=== PATIENT | female | born 1940 | race African-American/Black ===

== ENCOUNTER 2018-04-23 10:42 | Inpatient (IN) | payer MEDICARE, MEDICAID ==
[~2018-04-23] VITALS: Ht 157.5 cm; Wt 54.0 kg
[~2018-04-23 10:42] MED LIST: ALBUTEROL SULF8.5 GM INH; CLINDAMYCIN HC150 MG ORAL; LEVAQUIN500 MG PO; LICE KILLING S118 ML TP; NKM; PREDNISONE20 MG PO; PREDNISONE50 MG ORAL; PREDNISONE50 MG PO
[2018-04-23] MEDS ORDERED: BACTRIM DS TAB1 EAC1 ORAL (10:51)
[2018-04-23] MEDS ORDERED: Zolpidem 5mg tab ORAL PRN (11:00)
[2018-04-23] MEDS ORDERED: LORazepam Inj 2mg/ml 1ml IV PRN (11:00)
[2018-04-23] MEDS ORDERED: Mylanta II UD 30ml ORAL PRN (11:00)
[2018-04-23] MEDS ORDERED: Morphine Sulfate 2mg/ml Inj(IV/IM USE ONLY) IVP PRN (11:00)
[2018-04-23] MEDS ORDERED: Miralax 17gm pkt ORAL PRN (11:00)
[2018-04-23 11:10] VITALS: BP 131/71
--- NOTE | 2018-04-23 11:10 | NUR ---
ED Nurse Note: patient was brought by wide area network systems administrator from [facility] assissting leaving, complaining of SOB since this morning. Patient's O2 sat 96% at room air. VSS at this time, AAO x 4, skin is dry, intact. no chest pain, pt. has nonlabored breathing. connected to the monitor, will continue to monitor.
--- NOTE | 2018-04-23 11:14 | Emergency Room Report ---
History of Present Illness General Chief Complaint: Dyspnea/Respdistress Source: Patient Present Illness HPI Patient is a 77-year-old female brought sent in by her physician for hyponatremia. Patient was noted to have prior history of COPDShortness of breath. Patient was noted to have increased generalized weakness. Patient had recent laboratory testing which showed marked hyponatremia. Allergies: Coded Allergies: LATEX (Verified Allergy, Unknown, 10/07/11) LEVOFLOXACIN (Verified Allergy, 04/12/12) Patient History Past Medical History: see triage record Reviewed Nursing Documentation: PMH: Agreed; PSxH: Agreed Nursing Documentation-PMH Past Medical History: No History, Except For Hx Cardiac Problems: No Hx Hypertension: No Hx Pacemaker: No Hx Asthma: Yes Hx COPD: Yes Hx Diabetes: No Hx Cancer: No Hx Gastrointestinal Problems: No Hx Dialysis: No Hx Neurological Problems: No Hx Cerebrovascular Accident: No Hx Seizures: No Review of Systems All Other Systems: negative except mentioned in HPI Physical Exam Vital Signs Date Time Temp Pulse Resp B/P (MAP) Pulse Ox O2 Delivery O2 Flow Rate FiO2 04/23/18 10:46 97.5 83 20 130/84 90 Room Air Sp02 EP Interpretation: reviewed, normal General Appearance: normal inspection, alert, GCS 15, Chronically Ill Head: atraumatic ENT: normal ENT inspection, hearing grossly normal, normal voice Neck: normal inspection, full range of motion, supple, no bony tend Respiratory: normal inspection, no respiratory distress, no retraction, decreased breath sounds - right side decreased breath sounds Cardiovascular #1: regular rate, rhythm, no edema Gastrointestinal: normal inspection, normal bowel sounds, non tender, soft, no guarding, no hernia Genitourinary: no CVA tenderness Musculoskeletal: normal inspection, back normal, normal range of motion Neurologic: normal inspection, alert, oriented x3, responsive, yarn cleaner III-XII nml as tested, speech normal Psychiatric: normal inspection, judgement/insight normal, mood/affect normal Skin: normal inspection, normal color, no rash Medical Decision Making Diagnostic Impression: Primary Impression: Pleural effusion, right Additional Impression: Hyponatremia ER Course Patient presented for shortness of breath. Differential diagnosis include was not limited to pneumonia, COPD exacerbation, pneumothorax among others. Because of complexity of patient's case laboratory testing and imaging studies were ordered.Patient was noted to have recent laboratory testing performed. This is not repeat in the emergency department. Chest x-ray 1 view read by radiology showed large right pleural effusion. Patient will be admitted to the hospital for further evaluation and workup of pleural effusion. Dr. Betancur was contacted for inpatient management due to primary care physician. Laboratory Tests Test 04/23/18 12:00 Prothrombin Time 11.1 SEC (9.30-11.50) Prothrombin Time INR 1.1 (0.9-1.1) PTT 30 SEC (23-33) Urine Color Pale yellow Urine Appearance Clear Urine pH 6 (4.5-8.0) Urine Specific [place] 1.015 (1.005-1.035) Urine Protein 2+ (NEGATIVE) H Urine Glucose (UA) Negative (NEGATIVE) Urine Ketones 3+ (NEGATIVE) H Urine Blood 3+ (NEGATIVE) H Urine Nitrite Negative (NEGATIVE) Urine Bilirubin Negative (NEGATIVE) Urine Urobilinogen Normal MG/DL (0.0-1.0) Urine Leukocyte Esterase 1+ (NEGATIVE) H Urine RBC 2-4 /HPF (0 - 2) H Urine WBC 0-2 /HPF (0 - 2) Urine Squamous Epithelial Cells Few /LPF (NONE/OCC) Urine Bacteria Few /HPF (NONE) Urine Osmolality 398 mOsm/kg (429-449) L Urine Random Sodium < 20 mmol/L (20-110) L Osmolality 246 mOsm/kg (297-317) L Uric Acid Pending Thyroid Stimulating Hormone (TSH) Pending Free Thyroxine Pending Free Triiodothyronine Pending Cortisol Pending Last Vital Signs Date Time Temp Pulse Resp B/P (MAP) Pulse Ox O2 Delivery O2 Flow Rate FiO2 04/23/18 10:46 97.5 83 20 130/84 90 Room Air Status: unchanged Disposition: ADMITTED INPATIENT Condition: Carlos Skinner MD Apr 23, 2018 11:14
[2018-04-23] MEDS ORDERED: Dextrose 50% 25ml Syringe IV PRN (11:15)
--- NOTE | 2018-04-23 11:48 | Diagnostic Imaging Report ---
Indication: Reason For Exam: SOB Technique: One view of the chest Comparison: 07/08/2014 Findings: Interim development of a massive right pleural effusion, occupying most of the right hemithorax. There is scalloping of left hemidiaphragm. Left lung and pleural space are clear. Impression: Massive right pleural effusion
--- NOTE | 2018-04-23 12:27 | History and Physical ---
History of Present Illness General Date patient seen: Apr 24, 2018 Reason for Hospitalization: Dyspnea/Respdistress Present Illness HPI 77-year-old female without any PMHx brought in by her physician for hyponatremia. Patient was noted to have prior history of COPD. Shortness of breath. Patient was noted to have increased generalized weakness. Patient had recent laboratory testing which showed marked hyponatremia. Her CXR showed RLL effusion. Allergies: Coded Allergies: LATEX (Verified Allergy, Unknown, 10/07/11) LEVOFLOXACIN (Verified Allergy, 04/12/12) Medication History Scheduled Clindamycin Hcl* (Clindamycin Hcl*), 300 MG ORAL TID, (Reported) No Known Medications* (NKM - No Known Medications*), 0 ., (Reported) Trimethoprim/Sulfamethoxazole 160/800* (Bactrim Ds Tablet*), 1 TAB ORAL DAILY, ( Reported) Miscellaneous Medications Piperonyl Butoxide/Pyrethrins (Lice Killing Shampoo), 118 ML TP, (Reported) Patient History Healthcare decision maker Resuscitation status Advanced Directive on File Past Medical/Surgical History Past Medical/Surgical History: (1) copd Review of Systems All Other Systems: negative except mentioned in HPI Physical Exam General Appearance: WD/WN, alert Lines, tubes and drains: peripheral HEENT: normocephalic, atraumatic Neck: non-tender, normal alignment Respiratory/Chest: chest wall non-tender, lungs clear Breasts: no masses Cardiovascular/Chest: normal peripheral pulses Last 24 Hour Vital Signs Date Time Temp Pulse Resp B/P (MAP) Pulse Ox O2 Delivery O2 Flow Rate FiO2 04/23/18 11:10 73 15 Room Air 04/23/18 11:10 98.0 73 17 131/71 97 Room Air 04/23/18 10:46 97.5 83 20 130/84 90 Room Air Laboratory Tests Test 04/23/18 12:00 Urine Color Pending Urine Appearance Pending Urine pH Pending Urine Specific [place] Pending Urine Protein Pending Urine Glucose (UA) Pending Urine Ketones Pending Urine Blood Pending Urine Nitrite Pending Urine Bilirubin Pending Urine Urobilinogen Pending Urine Leukocyte Esterase Pending Urine RBC Pending Urine WBC Pending Urine Squamous Epithelial Cells Pending Urine Bacteria Pending Urine Osmolality Pending Urine Random Sodium Pending Osmolality Pending Uric Acid Pending Thyroid Stimulating Hormone (TSH) Pending Free Thyroxine Pending Free Triiodothyronine Pending Cortisol Pending Height (Feet): 5 Height (Inches): 2.00 Weight (Pounds): 120 Medications Current Medications Medications (Trade) Dose Ordered Sig/Jadyn Route PRN Reason Start Time Stop Time Status Last Admin Dose Admin Acetaminophen (Tylenol) 650 mg Q4H PRN ORAL fever 04/23/18 11:00 05/23/18 10:59 Al Hydroxide/Mg Hydroxide (Mylanta II) 30 ml Q6H PRN ORAL dyspepsia 04/23/18 11:00 05/23/18 10:59 Dextrose (Dextrose 50%) 25 ml Q30M PRN IV Hypoglycemia 04/23/18 11:15 05/23/18 11:03 Dextrose (Dextrose 50%) 50 ml Q30M PRN IV hypoglycemia 04/23/18 11:15 05/23/18 11:14 Lorazepam (Ativan 2mg/ml 1ml) 0.5 mg Q4H PRN IV For Anxiety 04/23/18 11:00 04/30/18 10:59 Morphine Sulfate (Morphine Sulfate) 1 mg Q4H PRN IVP For Pain 04/23/18 11:00 04/30/18 10:59 Ondansetron HCl (Zofran) 4 mg Q6H PRN IVP Nausea & Vomiting 04/23/18 11:00 05/23/18 10:59 Polyethylene Glycol (Miralax) 17 gm HSPRN PRN ORAL Constipation 04/23/18 11:00 05/23/18 10:59 Sodium Chloride 500 ml @ 30 mls/hr ONCE ONCE IV 04/23/18 11:15 04/24/18 03:54 UNV Zolpidem Tartrate (Ambien) 5 mg HSPRN PRN ORAL Insomnia 04/23/18 11:00 04/30/18 10:59 Assessment/Plan Problem List: (1) Pleural effusion, right ICD Codes: J90 - Pleural effusion, not elsewhere classified SNOMED: 76766487 (2) Acute encephalopathy ICD Codes: G93.40 - Encephalopathy, unspecified SNOMED: 53351144, 546420899 (3) Hyponatremia ICD Codes: E87.1 - Hypo-osmolality and hyponatremia SNOMED: 97272347 (4) copd Assessment/Plan thoracentesis today urine lytes pleural fluid for cytology Na better Renal evaluation Sully Betancur MD Apr 23, 2018 12:27
[2018-04-23 12:30] LABS: APPEARANCE,URINE CLEAR; BILIRUBIN, URINE NEGATIVE (NEGATIVE); COLOR,URINE PALE YELLOW; GLUCOSE, URINE (UA) NEGATIVE (NEGATIVE); KETONES,URINE 3+ (NEGATIVE); LEUKOCYTE ESTERASE ,URINE 1+ (NEGATIVE); NITRITE,URINE NEGATIVE (NEGATIVE); PH,URINE 6 (4.5-8.0); PROTEIN,URINE 2+ (NEGATIVE); UROBILINOGEN,URINE NORMAL MG/DL (0.0-1.0)
[2018-04-23 12:48] LABS: INR 1.1 (0.9-1.1)
--- NOTE | 2018-04-23 13:03 | NUR ---
NURSE NOTES: Pt just arrived to the unit
[2018-04-23 13:30] LABS: HEMATOCRIT 38.8 % (37.0-47.0); HEMOGLOBIN 13.5 G/DL (12.0-16.0); MEAN CORPUSCULAR VOLUME 78 FL (80-99); PLATELET COUNT 562 K/UL (150-450); RED BLOOD COUNT 4.95 M/UL (4.20-5.40); RED CELL DISTRIBUTION WIDTH 12.1 % (11.6-14.8); WHITE BLOOD COUNT 10.4 K/UL (4.8-10.8)
[2018-04-23 13:47] VITALS: BP 124/74
[2018-04-23 13:49] LABS: ALANINE AMINOTRANSFERASE 35 U/L (12-78); ALKALINE PHOSPHATASE 100 U/L (46-116); ANION GAP 11 mmol/L (5-15); ASPARTATE AMINO TRANSFERASE 26 U/L (15-37); BILIRUBIN,TOTAL 0.1 MG/DL (0.2-1.0); CARBON DIOXIDE 22 MMOL/L (21-32)
[2018-04-23 14:00] LABS: ALBUMIN 3.2 G/DL (3.4-5.0); BLOOD UREA NITROGEN 16 mg/dL (7-18); CALCIUM 9.6 MG/DL (8.5-10.1); CHLORIDE 82 MMOL/L (98-107); CREATININE 0.9 MG/DL (0.55-1.30)
[2018-04-23] MEDS ORDERED: NaCl 3% 500ml 500 ML IV ONE (14:00)
--- NOTE | 2018-04-23 14:00 | NUR ---
ADMISSION NOTES: Pt was admitted to the unit and vitals WNL, pt Ox4 calm and cooperative all orders in via Zarr[place], order to run 3% NS, diet order in, SCD's ordered for DVT, protonix ordered,
[2018-04-23 14:07] LABS: SODIUM 116 MMOL/L (136-145)
[2018-04-23 14:14] LABS: ALBUMIN/GLOBULIN RATIO 0.9 (1.0-2.7)
[2018-04-23 16:00] VITALS: BP 128/78
--- NOTE | 2018-04-23 19:25 | NUR ---
NURSE NOTES: Received report from Avinash Phillips RN. Pt is resting in the bed w/o distress in RA. Pt is having dinner by herself. HOB elevated > 45 degree. Bed alarm on, bed in lowest position, side rails up x3, and breaks are engaged. Call light and side table are w/in reach. Pt is instructed to call for patient services assistant to ambulate by using call light, verbalized understanding. IV site is asymptomatic, IV is running as ordered. Will follow plans of care.
[2018-04-23 20:00] VITALS: BP 128/78
[2018-04-24] VITALS: BP 105/65
--- NOTE | 2018-04-24 00:43 | NUR ---
NURSE NOTES: Pt was assisted to use toilet and went back to the bed w/o incident. IV 3% NS is running as ordered. Pt tolerated well all nursing intervention. No SOB in RA. Will continue to monitor.
[2018-04-24 04:00] VITALS: BP 134/84
[2018-04-24 07:18] LABS: BASOPHILS % (AUTO) 0.8 % (0.0-2.0); EOSINOPHILS % (AUTO) 0.5 % (0.0-3.0); HEMATOCRIT 40.7 % (37.0-47.0); HEMOGLOBIN 13.9 G/DL (12.0-16.0); LYMPHOCYTES % (AUTO) 8.1 % (20.0-45.0); MEAN CORPUSCULAR VOLUME 78 FL (80-99); MONOCYTES % (AUTO) 8.2 % (1.0-10.0); NEUTROPHILS % (AUTO) 82.4 % (45.0-75.0); PLATELET COUNT 620 K/UL (150-450); RED BLOOD COUNT 5.19 M/UL (4.20-5.40); RED CELL DISTRIBUTION WIDTH 11.9 % (11.6-14.8); WHITE BLOOD COUNT 8.8 K/UL (4.8-10.8)
--- NOTE | 2018-04-24 07:19 | NUR ---
CASE MANAGEMENT:REVIEW 77 YR OLD FEMALE BIBA FROM [facility] CC: SOB. WEAKNESS PMH: COPD. ASTHMA SI: HYPONATREMIA. PLEURAL EFFUSION 97.6 83 20 130/84 90% ON RA NA-116 TSH+4.423 IS: 500CC NACL 3% @ 30/HR CXR : TO TELEMETRY IS: THORACENTESIS VENOUS DUPLEX RANDOM SODIUM URINE INTERQUAL CRITERIA MET
--- NOTE | 2018-04-24 07:30 | NUR ---
HAND-OFF: Report given to Avinash Phillips RN.
--- NOTE | 2018-04-24 07:35 | NUR ---
NURSE NOTES: Pt sitting at bedside as she returned from restroom, pt placed back in bed w/ call light at bedside, pt makes needs known, bed alarm on, IV still running 3% sodium at 30/ml hr, pt Ox4 calm and cooperative, allergies noted, pt denies pain, no s/s of distress or sob noted, denies pain.
[2018-04-24 08:00] VITALS: BP 103/60
[2018-04-24 08:04] LABS: ALANINE AMINOTRANSFERASE 33 U/L (12-78); ALBUMIN 3.2 G/DL (3.4-5.0); ALBUMIN/GLOBULIN RATIO 0.9 (1.0-2.7); ALKALINE PHOSPHATASE 101 U/L (46-116); ANION GAP 11 mmol/L (5-15); ASPARTATE AMINO TRANSFERASE 24 U/L (15-37); BILIRUBIN,TOTAL 0.2 MG/DL (0.2-1.0); BLOOD UREA NITROGEN 9 mg/dL (7-18); CALCIUM 9.4 MG/DL (8.5-10.1); CARBON DIOXIDE 24 MMOL/L (21-32); CHLORIDE 90 MMOL/L (98-107); CHOLESTEROL 193 MG/DL (< 200); CREATININE 0.9 MG/DL (0.55-1.30); HDL CHOLESTEROL 76 MG/DL (40-60); POTASSIUM 3.8 MMOL/L (3.5-5.1); SODIUM 125 MMOL/L (136-145); TRIGLYCERIDES 60 MG/DL (30-150)
--- NOTE | 2018-04-24 10:18 | Consultation ---
Consult Note Consult Note Asked to eval for Low Na Patient is a 77-year-old female brought sent in by her physician for hyponatremia. Patient was noted to have prior history of COPDShortness of breath. Patient was noted to have increased generalized weakness. Patient had recent laboratory testing which showed marked hyponatremia. Allergies: LATEX (Verified Allergy, Unknown, 10/07/11) LEVOFLOXACIN (Verified Allergy, 04/12/12) Past Medical History: No History, Except For Hx Asthma: Yes Hx COPD: Yes examined data reviewed Assessment/Plan Sever HypoNatremia : U Na below 20 likely depletional Massive Rt Pleural effusion Acute Encephalopathy Proteinuria / HypoAlbuminemia Plan: 3% Saline 2D Echo monitor Lytes check pleural fluid for cytology and culture Carlos Sanchez MD Apr 24, 2018 10:18
[2018-04-24] MEDS ORDERED: NaCl 3% 500ml 500 ML IV ONE (11:00)
[2018-04-24 12:00] VITALS: BP 104/74
--- NOTE | 2018-04-24 14:34 | Pulmonology Progress Note ---
Assessment/Plan Problems: (1) Pleural effusion, right (2) Acute encephalopathy (3) Hyponatremia (4) copd Assessment/Plan f/u thoracentesis results cxr afterward check tumor markers respiratory treatment Subjective ROS Limited/Unobtainable: No Constitutional: Reports: no symptoms HEENT: Repors: no symptoms Allergies: Coded Allergies: LATEX (Verified Allergy, Unknown, 10/07/11) LEVOFLOXACIN (Verified Allergy, 04/12/12) Objective Last 24 Hour Vital Signs Date Time Temp Pulse Resp B/P (MAP) Pulse Ox O2 Delivery O2 Flow Rate FiO2 04/24/18 12:00 97.4 82 16 104/74 (84) 91 04/24/18 11:48 87 04/24/18 08:33 Room Air 04/24/18 08:00 97.1 70 16 103/60 (74) 96 04/24/18 07:56 73 04/24/18 04:05 70 04/24/18 04:00 97.3 83 20 134/84 (101) 95 04/24/18 00:00 97.5 75 20 105/65 (78) 95 04/23/18 23:48 83 04/23/18 21:00 Room Air 04/23/18 20:00 97.4 88 20 128/78 (95) 97 04/23/18 19:51 86 04/23/18 16:00 97.1 70 16 128/78 (95) 94 04/23/18 15:06 72 Intake and Output 04/23/18 04/24/18 19:00 07:00 Intake Total 120 ml 480 ml Balance 120 ml 480 ml Intake Oral 90 ml 300 ml IV Total 30 ml 180 ml # Voids 2 4 # Bowel Movements 1 General Appearance: WD/WN HEENT: normocephalic, atraumatic Respiratory/Chest: chest wall tender Breasts: no masses Cardiovascular: normal peripheral pulses Abdomen: normal bowel sounds, soft, non tender Extremities: no cyanosis Skin: no lesions 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 Laboratory Tests 04/24/18 04:55: White Blood Count 8.8, Red Blood Count 5.19, Hemoglobin 13.9, Hematocrit 40.7, Mean Corpuscular Volume 78L, Mean Corpuscular Hemoglobin 26.9L, Mean Corpuscular Hemoglobin Concent 34.3, Red Cell Distribution Width 11.9, Platelet Count 620H, Mean Platelet Volume 5.0L, Neutrophils (%) (Auto) 82.4H, Lymphocytes (%) (Auto) 8.1L, Monocytes (%) (Auto) 8.2, Eosinophils (%) (Auto) 0.5, Basophils (%) (Auto) 0.8, Sodium Level 125L, Potassium Level 3.8, Chloride Level 90L, Carbon Dioxide Level 24, Anion Gap 11, Blood Urea Nitrogen 9, Creatinine 0.9, Estimat Glomerular Filtration Rate , Glucose Level 84, Calcium Level 9.4, Total Bilirubin 0.2, Aspartate Amino Transf (AST/SGOT) 24, Alanine Aminotransferase (ALT/SGPT) 33, Alkaline Phosphatase 101, C-Reactive Protein, Quantitative 2.6H, Total Protein 6.8, Albumin 3.2L, Globulin 3.6, Albumin/ Globulin Ratio 0.9L, Triglycerides Level 60, Cholesterol Level 193, LDL Cholesterol 90, HDL Cholesterol 76H, Cholesterol/HDL Ratio 2.5L, Thyroid Stimulating Hormone (TSH) 6.287H Current Medications Medications (Trade) Dose Ordered Sig/Jadyn Route PRN Reason Start Time Stop Time Status Last Admin Dose Admin Acetaminophen (Tylenol) 650 mg Q4H PRN ORAL fever 04/23/18 11:00 05/23/18 10:59 Dextrose (Dextrose 50%) 25 ml Q30M PRN IV Hypoglycemia 04/23/18 11:15 05/23/18 11:03 Dextrose (Dextrose 50%) 50 ml Q30M PRN IV hypoglycemia 04/23/18 11:15 05/23/18 11:14 Lorazepam (Ativan 2mg/ml 1ml) 0.5 mg Q4H PRN IV For Anxiety 04/23/18 11:00 04/30/18 10:59 Morphine Sulfate (Morphine Sulfate) 1 mg Q4H PRN IVP For Pain 04/23/18 11:00 04/30/18 10:59 Ondansetron HCl (Zofran) 4 mg Q6H PRN IVP Nausea & Vomiting 04/23/18 11:00 05/23/18 10:59 Pantoprazole (Protonix) 40 mg DAILY ORAL 04/24/18 09:00 05/24/18 08:59 04/24/18 09:50 Polyethylene Glycol (Miralax) 17 gm HSPRN PRN ORAL Constipation 04/23/18 11:00 05/23/18 10:59 Sodium Chloride 500 ml @ 30 mls/hr ONCE ONCE IV 04/24/18 11:00 04/25/18 03:39 04/24/18 12:09 Zolpidem Tartrate (Ambien) 5 mg HSPRN PRN ORAL Insomnia 04/23/18 11:00 04/30/18 10:59 Sully Betancur MD Apr 24, 2018 14:34
[2018-04-24] MEDS ORDERED: Isovue-300 100ml vial INJ PRN (14:45)
--- NOTE | 2018-04-24 15:25 | Pre-Procedure Note/Attestation ---
Pre-Procedure Note/Attestation Complete Prior to Procedure Planned Procedure: right Procedure Narrative: Thoracentesis Indications for Procedure Pre-Operative Diagnosis: R pleural effusion Attestation I attest that I discussed the nature of the procedure; its benefits; risks and complications; and alternatives (and the risks and benefits of such alternatives ), prior to the procedure, with the patient (or the patient's legal appeals representative). I attest that, if there was a reasonable possibility of needing a blood transfusion, the patient (or the patient's legal appeals representative) was given the [facility] standardized written summary, pursuant to the [place] Blood Safety Act ([place] Health and Safety Code # 1645, as amended). I attest that I re-evaluated the patient just prior to the surgery and that there has been no change in the patient's H&P, except as documented below: Gorge Guerra MD Apr 24, 2018 15:25
--- NOTE | 2018-04-24 15:45 | NUR ---
RADIOLOGY DEPT CHEST X-RAY POST THORA COMPLETED.-P.DYE
--- NOTE | 2018-04-24 15:51 | Brief Operative Note ---
Immediate Post Operative Note Operative Note Pre-op Diagnosis: R pleural effusion Procedure: R thoracentesis Post-op Diagnosis: same as pre-op Findings: consistent w/pre-op dx studies Surgeon: Arnulfo Guerra Specimen: yes - Fluid sent to the lab Complications: yes - ex vacuo ptx Fluids: none Implant(s) used?: No Gorge Guerra MD Apr 24, 2018 15:51
[2018-04-24 16:00] VITALS: BP 94/42
--- NOTE | 2018-04-24 16:00 | NUR ---
NURSE NOTES: Pt went for thoracentesis and they pulled 3L out, and pt received a pneumothorax, Md Betancur stated he will keep the pt here in Telemetry and not to proceed with transfer.
--- NOTE | 2018-04-24 16:03 | Diagnostic Imaging Report ---
Indication: Status post thoracentesis Technique: One view of the chest Comparison: 04/23/2018 Findings: Interim evacuation of previously demonstrated massive right pleural effusion. There is a large right pneumothorax, over 50%. However, the lung is more aerated than it was preprocedure. Left basilar lung mass versus scalloping of the left hemidiaphragm is noted, appears somewhat more less masslike on the current than on the previous study. The heart is upper limits normal in size. Impression: Interim evacuation of previously demonstrated massive right pleural effusion; note that 3 L were evacuated. Interim development of large right ex vacuo pneumothorax. Recommend short interval radiographs to evaluate stability or improvement Scalloped left hemidiaphragm versus left basilar lung mass. Per patient's nurse, a chest CT is pending Findings discussed by phone with Dr. Betancur at the time of interpretation. There is also discussed with patient's nurse, who indicates the patient's respiratory status is considerably improved compared to preprocedure
--- NOTE | 2018-04-24 16:32 | Diagnostic Imaging Report ---
Indications: Pleural effusion Technique: Ultrasound used to localize optimal puncture site. Sterile prepping and draping right chest. Local anesthesia with 1% lidocaine. Under real-time ultrasound guidance, puncture pleural space using thoracentesis needle. Stylet removed. Catheter placed to vacuum bottle suction. Total 3000 milliliters of fluid aspirated. Patient tolerated procedure well, without immediate complication. Findings: Followup sonography demonstrates complete resolution of pleural fluid. Impression: Successful ultrasound-guided thoracentesis, yielding 3000 milliliters of fluid
--- NOTE | 2018-04-24 18:00 | Consultation ---
DATE OF CONSULTATION: 04/24/2018 NOTE: POOR AUDIO ENDOCRINOLOGY CONSULTATION CONSULTING PHYSICIAN: Jose Ramírez M.D. REFERRING PHYSICIAN: Sully Betancur M.D. REASON FOR CONSULTATION: Abnormal thyroid function. HISTORY OF PRESENT ILLNESS: The patient is a 77-year-old female, who was sent by her physician for hyponatremia. The patient has history of COPD and shortness of breath, was brought to the hospital with generalized weakness and recent laboratory values were suggestive of a significant hyponatremia. On presentation to the emergency department, the patient was noted to have a sodium of 116 with a potassium 4.0, chloride of 102, creatinine is normal. TSH is mildly elevated at 4.4 with a normal free T4 of 1.14 with a slightly low free T3 level of 1.5. Cortisol level has been pending . PAST MEDICAL HISTORY: History of COPD. REVIEW OF SYSTEMS: Difficult to obtain. SOCIAL HISTORY: No smoking, alcohol, or drug use. Labs discussed in the history of present illness. MEDICATIONS: Reviewed and reconciled. FAMILY HISTORY: Noncontributory. PHYSICAL EXAMINATION: VITAL SIGNS: Blood pressure 130/84, heart rate of 88, respiratory rate 20, and temperature of 97.5. HEENT: Pupils are equal and reactive to light. Sclerae anicteric. NECK: No JVD. HEART: Regular. LUNGS: Clear. ABDOMEN: Positive bowel sounds. EXTREMITIES: No clubbing, cyanosis, or edema. DIAGNOSES: 1. Pleural effusion. 2. Severe hyponatremia. 3. Abnormal thyroid function. DISCUSSION: The slight elevation of TSH should not be a contributor to hyponatremia. This is slight abnormality is most likely due to "Sick Euthyroid " phenomenon. Serum cortisol is pending in order to rule out possibility of adrenal insufficiency. Currently, the patient has been treated with hypertonic saline and. . Follow the serum sodium twice daily. I will repeat the thyroid function in a day or 2. No indication to start levothyroxine for now. We will follow the patient. Thank you, Dr. Betancur, for the courtesy of this consultation. Jose Ramírez M.D. DR: MARU/GRABIEL JOB#: [id number] CC: PRISCA
--- NOTE | 2018-04-24 19:11 | NUR ---
HAND-OFF: Report given to Destiny Serrano Rn, pt going down for chest ct with contrast, pt signed consent and xray at 1900 and 04/25/18 0400hrs.
--- NOTE | 2018-04-24 19:15 | NUR ---
NURSE NOTES: Received report from Avinash Phillips RN. Pt went down via wheelchair to take CXR accompanied by the geotechnical laboratory technician. No distress in RA, is able to make needs known. Will follow plans of care.
--- NOTE | 2018-04-24 20:20 | NUR ---
NURSE NOTES: Pt came back after CXR done. Resting in the bed w/o distress. HOB elevated >30 degree, having food from her dinner tray. Refused to take VS at this time. Call light w/in reach. Bed in lowest position with 2 side rails upx2, and breaks are engaged. Will continue to monitor.
--- NOTE | 2018-04-24 22:07 | Physician Query ---
--------- THIS DOCUMENT IS A PERMANENT PART OF THE MEDICAL RECORD --------- PLEASE COMPLETE DOCUMENT BEFORE SIGNING Dear Dr. Severo UPTON Date: 04/24/18 Bioassayist/CDS Name: Pamella SALDANA Bioassayist / CDS Phone # Exercise your independent professional judgment when responding to query. Question asked do not imply a particular answer is desired/expected. Clinical Documentation States: "ACUTE ENCEPHALOPATHY" -- in H&P Clinical Findings Show: SODIUM (Na) = 116, 125 mmol/l IV Hydration (3% Saline) Please indicate the nature and chronicity of the condition below: [x] Metabolic Encephalopathy [x] Toxic Encephalopathy [] Toxic - Metabolic Encephalopathy [] Progressive Encephalopathy [] Encephalopathy, Other [] Other: [] Not Applicable Condition Present on Admission: [x] Yes [] No [] Clinically Undeterminable Please also document in your Progress Notes and/or Discharge Summary and indicate if the condition was present on admission. ANAID UPTON M.D. DATE & TIME [facility]
[2018-04-25] VITALS: BP 92/66
--- NOTE | 2018-04-25 00:30 | Consultation ---
DATE OF CONSULTATION: 04/24/2018 CONSULTING PHYSICIAN: Katelin Landry M.D. ATTENDING PHYSICIAN: Sully Betancur M.D. REASON FOR CONSULTATION: Skin check. HISTORY OF PRESENT ILLNESS: This is a 77-year-old woman who is admitted for hyponatremia and generalized weakness. She is ambulatory, but overall the patient is very thin and also has thin skin. PAST MEDICAL HISTORY: The patient has asthma and COPD. MEDICATIONS: None. REVIEW OF SYSTEMS: CONSTITUTIONAL: The patient denies any weight loss or weight gain, fevers, or chills. HEENT: The patient denies any throat or ear pain or headache. CARDIOVASCULAR: The patient denies any chest pain. CHEST: The patient denies any shortness of breath. ABDOMINAL: The patient denies any nausea, vomiting, or constipation. NEUROMUSCULAR: The patient has general weakness. PHYSICAL EXAMINATION: VITAL SIGNS: The patient is afebrile. Her vital signs are stable. GENERAL: She is ambulatory. SKIN: I examined the patient and looked at her skin. She does have very thin skin. ASSESSMENT: The patient was a recent admit for hyponatremia and generalized weakness. The patient is ambulatory and has good mobility, however, she does have extremely thin skin. RECOMMENDATIONS: My recommendations are: 1. Monitor and manage friction or shear while the patient is admitted in the hospital. 2. Keep the linens dry and wrinkle-free. 3. Moisturize skin daily. 4. Encourage ambulation and mobility, and also nutrition consult to ensure adequate nutritional needs. 5. Monitor weight Katelin Landry M.D. DR: CLAY JOB#: [id number] CC: PRISCA
--- NOTE | 2018-04-25 01:58 | NUR ---
NURSE NOTES: Pt was assisted to use bathroom and came back to the bed w/o distress. Will continue to monitor.
[2018-04-25 04:00] VITALS: BP 124/72
--- NOTE | 2018-04-25 07:25 | NUR ---
HAND-OFF: Report given to MARU Fontenot. VSS, Pt is eating breakfast w/o distress.
--- NOTE | 2018-04-25 07:49 | NUR ---
NURSE NOTES: Pt sitting at bedside eating breakfast. Patient is AAOx4 calm, and cooperative. Patient denies pain. Patient is breathing even and unlabored. Patient is on heart monitor. pt has call light at bedside, pt makes needs known, and bed alarm on. Will follow up with plan of care.
[2018-04-25 08:00] VITALS: BP 106/68
--- NOTE | 2018-04-25 08:10 | General Progress Note ---
Assessment/Plan Problem List: (1) Acute encephalopathy ICD Codes: G93.40 - Encephalopathy, unspecified SNOMED: 30233140, 045249954 (2) Hyponatremia ICD Codes: E87.1 - Hypo-osmolality and hyponatremia SNOMED: 43216655 (3) Pleural effusion, right ICD Codes: J90 - Pleural effusion, not elsewhere classified SNOMED: 51399500 (4) copd (5) Abnormal thyroid function test ICD Codes: R94.6 - Abnormal results of thyroid function studies SNOMED: 545053716 Assessment/Plan TSH is repeated and is higher at 6 free T4 is normal this abnormal thyroid function is still suggestive of "Sick Euthyroid" will hold off on starting thyroxine will continue to follow the trend on TSH hyponatremia is being addressed and managed by Dr Sanchez Na is improving serum Cortisol is normal Subjective Allergies: Coded Allergies: LATEX (Verified Allergy, Unknown, 10/07/11) LEVOFLOXACIN (Verified Allergy, 04/12/12) All Systems: reviewed and negative except above Subjective events noted Objective Last 24 Hour Vital Signs Date Time Temp Pulse Resp B/P (MAP) Pulse Ox O2 Delivery O2 Flow Rate FiO2 04/25/18 04:10 72 04/25/18 04:00 97.7 84 20 124/72 (89) 93 04/25/18 00:00 98.1 87 20 92/66 (75) 91 04/24/18 23:39 76 04/24/18 21:00 Room Air 04/24/18 16:00 97.9 80 18 94/42 (59) 92 04/24/18 15:53 85 04/24/18 12:00 97.4 82 16 104/74 (84) 91 04/24/18 11:48 87 04/24/18 08:33 Room Air Intake and Output 04/24/18 04/25/18 18:59 06:59 Intake Total 280 ml 150 ml Balance 280 ml 150 ml Intake Oral 280 ml 150 ml # Voids 3 3 Laboratory Tests 04/24/18 14:56: Body Fluid Source Thoracentesis, Body Fluid Volume 24, Body Fluid Appearance Hazy, Body Fluid RBC 983, Body Fluid Total Nucleated Cells 192, Body Fluid Polynuclear WBCs (%) 6, Body Fluid Mononuclear WBCs (%) 79, Body Fluid Mesothelial Cells (%) 15, Body Fluid Comment 04/24/18 16:00: CA 15-3 Antigen [Pending], CA 19-9 Antigen [Pending], CA 27.29 [Pending], CA 125 Antigen [Pending] Height (Feet): 5 Height (Inches): 2.00 Weight (Pounds): 94 General Appearance: no apparent distress Neck: normal alignment Cardiovascular: normal rate Respiratory/Chest: normal breath sounds Abdomen: normal bowel sounds Objective Current Medications Medications (Trade) Dose Ordered Sig/Jadyn Route PRN Reason Start Time Stop Time Status Last Admin Dose Admin Acetaminophen (Tylenol) 650 mg Q4H PRN ORAL fever 04/23/18 11:00 05/23/18 10:59 Dextrose (Dextrose 50%) 25 ml Q30M PRN IV Hypoglycemia 04/23/18 11:15 05/23/18 11:03 Dextrose (Dextrose 50%) 50 ml Q30M PRN IV hypoglycemia 04/23/18 11:15 05/23/18 11:14 Iopamidol (Isovue-300 100ml) 100 ml NOW PRN INJ Radiology Procedure 04/24/18 14:45 04/26/18 14:41 Lorazepam (Ativan 2mg/ml 1ml) 0.5 mg Q4H PRN IV For Anxiety 04/23/18 11:00 04/30/18 10:59 Morphine Sulfate (Morphine Sulfate) 1 mg Q4H PRN IVP For Pain 04/23/18 11:00 04/30/18 10:59 Ondansetron HCl (Zofran) 4 mg Q6H PRN IVP Nausea & Vomiting 04/23/18 11:00 05/23/18 10:59 Pantoprazole (Protonix) 40 mg DAILY ORAL 04/24/18 09:00 05/24/18 08:59 04/24/18 09:50 Polyethylene Glycol (Miralax) 17 gm HSPRN PRN ORAL Constipation 04/23/18 11:00 05/23/18 10:59 Zolpidem Tartrate (Ambien) 5 mg HSPRN PRN ORAL Insomnia 04/23/18 11:00 04/30/18 10:59 Jose Ramírez MD Apr 25, 2018 08:10
--- NOTE | 2018-04-25 10:14 | Diagnostic Imaging Report ---
EXAM: XR Chest, 1 View CLINICAL HISTORY: Status post thoracentesis TECHNIQUE: Frontal view of the chest. COMPARISON: No relevant prior studies available. FINDINGS: Lungs: Patchy consolidation in the atelectatic right lung. Left lung appears clear. Pleural space: Interval improvement of the large right pneumothorax, still occupying approximately 30-40% of the left thorax. Heart: Unremarkable. No cardiomegaly. Mediastinum: Unremarkable. Bones/joints: Unremarkable. Soft tissues: Persistent subcutaneous emphysema in the right chest wall. Tubes, lines and devices: Telemetry leads overlie the thorax. IMPRESSION: 1. Interval improvement of the large right pneumothorax, still occupying approximately 30-40% of the left thorax. 2. Patchy consolidation in the atelectatic right lung. 3. Persistent subcutaneous emphysema in the right chest wall.
[2018-04-25 10:33] LABS: ALANINE AMINOTRANSFERASE 32 U/L (12-78); ALBUMIN 2.9 G/DL (3.4-5.0); ALBUMIN/GLOBULIN RATIO 0.9 (1.0-2.7); ALKALINE PHOSPHATASE 101 U/L (46-116); ANION GAP 12 mmol/L (5-15); ASPARTATE AMINO TRANSFERASE 30 U/L (15-37); BILIRUBIN,TOTAL 0.3 MG/DL (0.2-1.0); BLOOD UREA NITROGEN 12 mg/dL (7-18); CALCIUM 9.4 MG/DL (8.5-10.1); CARBON DIOXIDE 21 MMOL/L (21-32); CHLORIDE 93 MMOL/L (98-107); CREATININE 0.6 MG/DL (0.55-1.30); GAMMA GLUTAMYL TRANSPEPTIDASE 30 U/L (5-85); PHOSPHORUS 3.4 MG/DL (2.5-4.9); POTASSIUM 5.4 MMOL/L (3.5-5.1); SODIUM 126 MMOL/L (136-145)
--- NOTE | 2018-04-25 10:39 | NUR ---
NURSE NOTES: Dr. Betancur is aware of the morning CXR results. Per Dr. Betancur, no need for isolation at this time.
[2018-04-25] MEDS ORDERED: Isovue-300 100ml vial INJ PRN (10:45)
--- NOTE | 2018-04-25 10:49 | Pulmonology Progress Note ---
Assessment/Plan Problems: (1) Pleural effusion, right (2) Acute encephalopathy (3) Hyponatremia (4) copd Assessment/Plan f/u thoracentesis results cxr afterward check tumor markers respiratory treatment tumor markers elevated. Subjective ROS Limited/Unobtainable: No Constitutional: Reports: no symptoms HEENT: Repors: no symptoms Respiratory: Reports: no symptoms Allergies: Coded Allergies: LATEX (Verified Allergy, Unknown, 10/07/11) LEVOFLOXACIN (Verified Allergy, 04/12/12) Objective Last 24 Hour Vital Signs Date Time Temp Pulse Resp B/P (MAP) Pulse Ox O2 Delivery O2 Flow Rate FiO2 04/25/18 09:42 97 04/25/18 08:03 Room Air 04/25/18 08:00 96.4 86 20 106/68 (81) 96 04/25/18 04:10 72 04/25/18 04:00 97.7 84 20 124/72 (89) 93 04/25/18 00:00 98.1 87 20 92/66 (75) 91 04/24/18 23:39 76 04/24/18 21:00 Room Air 04/24/18 16:00 97.9 80 18 94/42 (59) 92 04/24/18 15:53 85 04/24/18 12:00 97.4 82 16 104/74 (84) 91 04/24/18 11:48 87 Intake and Output 04/24/18 04/25/18 19:00 07:00 Intake Total 280 ml 150 ml Balance 280 ml 150 ml Intake Oral 280 ml 150 ml # Voids 3 3 Objective no stress, tumor markers are elevated. 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 Microbiology Date/Time Source Procedure Growth Status 04/23/18 14:56 Ascities Fluid Gram Stain - Final Resulted 04/23/18 14:56 Ascities Fluid Body Fluid Culture - Preliminary NO GROWTH Resulted 04/23/18 20:00 Rectum VRE Culture - Final Resulted 04/23/18 20:00 Rectum Pending Resulted Laboratory Tests 04/24/18 14:56: Body Fluid Source Thoracentesis, Body Fluid Volume 24, Body Fluid Appearance Hazy, Body Fluid RBC 983, Body Fluid Total Nucleated Cells 192, Body Fluid Polynuclear WBCs (%) 6, Body Fluid Mononuclear WBCs (%) 79, Body Fluid Mesothelial Cells (%) 15, Body Fluid Comment 04/24/18 16:00: CA 15-3 Antigen 265.2H, CA 19-9 Antigen 9, CA 27.29 [Pending], CA 125 Antigen 867.6H 04/25/18 07:35: Sodium Level 126L, Potassium Level 5.4H, Chloride Level 93L, Carbon Dioxide Level 21, Anion Gap 12, Blood Urea Nitrogen 12, Creatinine 0.6, Estimat Glomerular Filtration Rate , Glucose Level 72L, Uric Acid 3.7, Calcium Level 9.4 , Phosphorus Level 3.4, Magnesium Level 2.0, Total Bilirubin 0.3, Gamma Glutamyl Transpeptidase 30, Aspartate Amino Transf (AST/SGOT) 30, Alanine Aminotransferase (ALT/SGPT) 32, Alkaline Phosphatase 101, Pro-B-Type Natriuretic Peptide 168H, Total Protein 6.1L, Albumin 2.9L, Globulin 3.2, Albumin/Globulin Ratio 0.9L, Vitamin B12 Level 220, Folate 7.2L Current Medications Medications (Trade) Dose Ordered Sig/Jadyn Route PRN Reason Start Time Stop Time Status Last Admin Dose Admin Acetaminophen (Tylenol) 650 mg Q4H PRN ORAL fever 04/23/18 11:00 05/23/18 10:59 Dextrose (Dextrose 50%) 25 ml Q30M PRN IV Hypoglycemia 04/23/18 11:15 05/23/18 11:03 Dextrose (Dextrose 50%) 50 ml Q30M PRN IV hypoglycemia 04/23/18 11:15 05/23/18 11:14 Iopamidol (Isovue-300 100ml) 100 ml NOW PRN INJ Radiology Procedure 04/24/18 14:45 04/26/18 14:41 Lorazepam (Ativan 2mg/ml 1ml) 0.5 mg Q4H PRN IV For Anxiety 04/23/18 11:00 04/30/18 10:59 Morphine Sulfate (Morphine Sulfate) 1 mg Q4H PRN IVP For Pain 04/23/18 11:00 04/30/18 10:59 Ondansetron HCl (Zofran) 4 mg Q6H PRN IVP Nausea & Vomiting 04/23/18 11:00 05/23/18 10:59 Pantoprazole (Protonix) 40 mg DAILY ORAL 04/24/18 09:00 05/24/18 08:59 04/25/18 08:16 Polyethylene Glycol (Miralax) 17 gm HSPRN PRN ORAL Constipation 04/23/18 11:00 05/23/18 10:59 Tuberculin PPD (Tubersol (PPD)) 0.1 ml ONCE ONCE IDERMAL 04/25/18 11:30 04/25/18 11:31 Zolpidem Tartrate (Ambien) 5 mg HSPRN PRN ORAL Insomnia 04/23/18 11:00 04/30/18 10:59 Sully Betancur MD Apr 25, 2018 10:49
[2018-04-25] MEDS ORDERED: PPD Tuberculin Skin Test 5TU IDERMAL ONE (11:30)
[2018-04-25 12:00] VITALS: BP 108/70
[2018-04-25] MEDS ORDERED: Sodium Polystyrene Sulfon/Sorb 15gm/60ml Susp ORAL ONE (12:00)
[2018-04-25] MEDS ORDERED: Sodium Polystyrene Sulfon/Sorb 15gm/60ml Susp ORAL SCH (12:00)
--- NOTE | 2018-04-25 13:00 | NUR ---
NURSE NOTES: Spoke to Dr. Betancur about lab values including sodium 126 and potassium 5.4. Orders was entered/received.
--- NOTE | 2018-04-25 13:58 | Nephrology Progress Note ---
Assessment/Plan Problem List: (1) Hyponatremia (2) Pleural effusion, right (3) Severe malnutrition Assessment Sever HypoNatremia : U Na below 20 likely depletional Massive Rt Pleural effusion Acute Encephalopathy Proteinuria / HypoAlbuminemia now has pneumothorax Plan Plan: 3% Saline and lasix as needed 2D Echo monitor Lytes check pleural fluid for cytology and culture pneumothorax management Subjective ROS Limited/Unobtainable: No Constitutional: Reports: malaise Objective Objective Last 24 Hour Vital Signs Date Time Temp Pulse Resp B/P (MAP) Pulse Ox O2 Delivery O2 Flow Rate FiO2 04/25/18 09:42 97 04/25/18 08:03 Room Air 04/25/18 08:00 96.4 86 20 106/68 (81) 96 04/25/18 04:10 72 04/25/18 04:00 97.7 84 20 124/72 (89) 93 04/25/18 00:00 98.1 87 20 92/66 (75) 91 04/24/18 23:39 76 04/24/18 21:00 Room Air 04/24/18 16:00 97.9 80 18 94/42 (59) 92 04/24/18 15:53 85 Intake and Output 04/24/18 04/25/18 19:00 07:00 Intake Total 280 ml 150 ml Balance 280 ml 150 ml Intake Oral 280 ml 150 ml # Voids 3 3 Laboratory Tests 04/24/18 14:56: Body Fluid Source Thoracentesis, Body Fluid Volume 24, Body Fluid Appearance Hazy, Body Fluid RBC 983, Body Fluid Total Nucleated Cells 192, Body Fluid Polynuclear WBCs (%) 6, Body Fluid Mononuclear WBCs (%) 79, Body Fluid Mesothelial Cells (%) 15, Body Fluid Comment 04/24/18 16:00: CA 15-3 Antigen 265.2H, CA 19-9 Antigen 9, CA 27.29 [Pending], CA 125 Antigen 867.6H 04/25/18 07:35: Sodium Level 126L, Potassium Level 5.4H, Chloride Level 93L, Carbon Dioxide Level 21, Anion Gap 12, Blood Urea Nitrogen 12, Creatinine 0.6, Estimat Glomerular Filtration Rate , Glucose Level 72L, Uric Acid 3.7, Calcium Level 9.4 , Phosphorus Level 3.4, Magnesium Level 2.0, Total Bilirubin 0.3, Gamma Glutamyl Transpeptidase 30, Aspartate Amino Transf (AST/SGOT) 30, Alanine Aminotransferase (ALT/SGPT) 32, Alkaline Phosphatase 101, Pro-B-Type Natriuretic Peptide 168H, Total Protein 6.1L, Albumin 2.9L, Globulin 3.2, Albumin/Globulin Ratio 0.9L, Carcinoembryonic Antigen [Pending], Vitamin B12 Level 220, Folate 7.2L Height (Feet): 5 Height (Inches): 2.00 Weight (Pounds): 94 Cardiovascular: arrhythmia Respiratory/Chest: decreased breath sounds Abdomen: soft Carlos Sanchez MD Apr 25, 2018 13:58
[2018-04-25] MEDS ORDERED: NaCl 3% 500ml 500 ML IV ONE (15:00)
[2018-04-25 16:00] VITALS: BP 98/65
[2018-04-25 20:00] VITALS: BP 105/62
--- NOTE | 2018-04-25 20:03 | NUR ---
HAND-OFF: Report given to Juana Koch. Endorsed about lab values and chest x-ray result made aware to Dr. Betancur. CT scan still pending.
--- NOTE | 2018-04-25 20:04 | NUR ---
NURSE NOTES: Got report from Ramírez MAHONEY. Pt in stable condition. Denies any pain. No s/s of distress noted. Pt resting in bed comfortably. Bed in low and locked position, call light within reach, bedside table within reach. continue to monitor.
[2018-04-26] VITALS: BP 108/61
[2018-04-26 04:00] VITALS: BP 108/62
--- NOTE | 2018-04-26 07:16 | NUR ---
HAND-OFF: Report given to suman Arias. endorsed plan of care.
[2018-04-26 07:17] LABS: BASOPHILS % (AUTO) 1.1 % (0.0-2.0); EOSINOPHILS % (AUTO) 2.4 % (0.0-3.0); HEMATOCRIT 38.9 % (37.0-47.0); HEMOGLOBIN 13.3 G/DL (12.0-16.0); LYMPHOCYTES % (AUTO) 8.9 % (20.0-45.0); MEAN CORPUSCULAR VOLUME 80 FL (80-99); MONOCYTES % (AUTO) 5.9 % (1.0-10.0); NEUTROPHILS % (AUTO) 81.7 % (45.0-75.0); PLATELET COUNT 560 K/UL (150-450); RED BLOOD COUNT 4.89 M/UL (4.20-5.40); RED CELL DISTRIBUTION WIDTH 12.1 % (11.6-14.8); WHITE BLOOD COUNT 9.2 K/UL (4.8-10.8)
--- NOTE | 2018-04-26 07:17 | NUR ---
NURSE NOTES: Pt awake alert, no distress. call light within reach. bed in lowest position, locked. will continue to monitor
[2018-04-26 07:44] LABS: ALANINE AMINOTRANSFERASE 25 U/L (12-78); ALBUMIN 2.8 G/DL (3.4-5.0); ALBUMIN/GLOBULIN RATIO 0.9 (1.0-2.7); ALKALINE PHOSPHATASE 84 U/L (46-116); ANION GAP 7 mmol/L (5-15); ASPARTATE AMINO TRANSFERASE 17 U/L (15-37); BILIRUBIN,TOTAL 0.2 MG/DL (0.2-1.0); BLOOD UREA NITROGEN 11 mg/dL (7-18); CALCIUM 9.1 MG/DL (8.5-10.1); CARBON DIOXIDE 29 MMOL/L (21-32); CHLORIDE 99 MMOL/L (98-107); CREATININE 0.7 MG/DL (0.55-1.30); POTASSIUM 3.6 MMOL/L (3.5-5.1); SODIUM 135 MMOL/L (136-145)
[2018-04-26 07:47] LABS: PHOSPHORUS 3.1 MG/DL (2.5-4.9)
[2018-04-26 08:00] VITALS: BP 99/54
--- NOTE | 2018-04-26 08:28 | General Progress Note ---
Assessment/Plan Problem List: (1) Acute encephalopathy ICD Codes: G93.40 - Encephalopathy, unspecified SNOMED: 64615957, 189287453 (2) Hyponatremia ICD Codes: E87.1 - Hypo-osmolality and hyponatremia SNOMED: 99829333 (3) Pleural effusion, right ICD Codes: J90 - Pleural effusion, not elsewhere classified SNOMED: 51912811 (4) copd (5) Abnormal thyroid function test ICD Codes: R94.6 - Abnormal results of thyroid function studies SNOMED: 886491625 (6) Pneumothorax ICD Codes: J93.9 - Pneumothorax, unspecified SNOMED: 74494834 Assessment/Plan TSH is repeated and is higher at 6 free T4 is normal this abnormal thyroid function is still suggestive of "Sick Euthyroid" will hold off on starting thyroxine will repeat TSH, free T4 with am labs hyponatremia is being managed by Dr Sanchez serum Cortisol is normal Subjective Allergies: Coded Allergies: LATEX (Verified Allergy, Unknown, 10/07/11) LEVOFLOXACIN (Verified Allergy, 04/12/12) All Systems: reviewed and negative except above Subjective events noted came down with pneumothorax Objective Last 24 Hour Vital Signs Date Time Temp Pulse Resp B/P (MAP) Pulse Ox O2 Delivery O2 Flow Rate FiO2 04/26/18 08:00 98.0 79 18 99/54 (69) 96 04/26/18 04:00 98.0 79 18 108/62 (77) 96 04/26/18 04:00 83 04/26/18 00:00 98.1 82 18 108/61 (77) 99 04/26/18 00:00 84 04/25/18 21:00 Room Air 04/25/18 20:00 98.9 97 19 105/62 (76) 99 04/25/18 20:00 93 04/25/18 16:22 89 04/25/18 16:00 97.8 84 20 98/65 (76) 96 04/25/18 12:00 97.0 84 20 108/70 (83) 96 04/25/18 11:52 88 04/25/18 09:42 97 Intake and Output 04/25/18 04/26/18 18:59 06:59 Intake Total 600 ml Balance 600 ml Intake Oral 600 ml # Voids 3 3 Laboratory Tests 04/26/18 05:50: White Blood Count 9.2, Red Blood Count 4.89, Hemoglobin 13.3, Hematocrit 38.9, Mean Corpuscular Volume 80, Mean Corpuscular Hemoglobin 27.2, Mean Corpuscular Hemoglobin Concent 34.1, Red Cell Distribution Width 12.1, Platelet Count 560H, Mean Platelet Volume 4.8L, Neutrophils (%) (Auto) 81.7H, Lymphocytes (%) (Auto) 8.9L, Monocytes (%) (Auto) 5.9, Eosinophils (%) (Auto) 2.4, Basophils (%) (Auto ) 1.1, Sodium Level 135L, Potassium Level 3.6, Chloride Level 99, Carbon Dioxide Level 29, Anion Gap 7, Blood Urea Nitrogen 11, Creatinine 0.7, Estimat Glomerular Filtration Rate , Glucose Level 86, Osmolality [Pending], Uric Acid 3.6, Calcium Level 9.1, Phosphorus Level 3.1, Magnesium Level 1.7L, Total Bilirubin 0.2, Aspartate Amino Transf (AST/SGOT) 17, Alanine Aminotransferase ( ALT/SGPT) 25, Alkaline Phosphatase 84, Pro-B-Type Natriuretic Peptide 183H, Total Protein 5.9L, Albumin 2.8L, Globulin 3.1, Albumin/Globulin Ratio 0.9L Height (Feet): 5 Height (Inches): 2.00 Weight (Pounds): 94 General Appearance: no apparent distress Neck: normal alignment Cardiovascular: regular rhythm Respiratory/Chest: decreased breath sounds Objective Current Medications Medications (Trade) Dose Ordered Sig/Jadyn Route PRN Reason Start Time Stop Time Status Last Admin Dose Admin Acetaminophen (Tylenol) 650 mg Q4H PRN ORAL fever 04/23/18 11:00 05/23/18 10:59 Barium Sulfate (Readi-Cat 2) 450 ml NOW PRN ORAL Radiology Procedure 04/25/18 10:45 04/27/18 23:59 Dextrose (Dextrose 50%) 25 ml Q30M PRN IV Hypoglycemia 04/23/18 11:15 05/23/18 11:03 Dextrose (Dextrose 50%) 50 ml Q30M PRN IV hypoglycemia 04/23/18 11:15 05/23/18 11:14 Furosemide (Lasix) 20 mg EVERY 12 HOURS IV 04/25/18 21:00 05/25/18 13:59 04/26/18 08:10 Iopamidol (Isovue-300 100ml) 100 ml NOW PRN INJ Radiology Procedure 04/24/18 14:45 04/26/18 14:41 Iopamidol (Isovue-300 100ml) 100 ml NOW PRN INJ Radiology Procedure 04/25/18 10:45 04/27/18 23:59 Lorazepam (Ativan 2mg/ml 1ml) 0.5 mg Q4H PRN IV For Anxiety 04/23/18 11:00 04/30/18 10:59 Morphine Sulfate (Morphine Sulfate) 1 mg Q4H PRN IVP For Pain 04/23/18 11:00 04/30/18 10:59 Ondansetron HCl (Zofran) 4 mg Q6H PRN IVP Nausea & Vomiting 04/23/18 11:00 05/23/18 10:59 Pantoprazole (Protonix) 40 mg DAILY ORAL 04/24/18 09:00 05/24/18 08:59 04/26/18 08:11 Polyethylene Glycol (Miralax) 17 gm HSPRN PRN ORAL Constipation 04/23/18 11:00 05/23/18 10:59 Zolpidem Tartrate (Ambien) 5 mg HSPRN PRN ORAL Insomnia 04/23/18 11:00 04/30/18 10:59 Jose Ramírez MD Apr 26, 2018 08:27
--- NOTE | 2018-04-26 08:55 | NUR ---
NURSE NOTES: pt states shes allergic to shellfish, Left message to Dr Betancur if ok to do ct abd without contrast,awaiting response. also will notify Ct, no orange picking supervisor from telephone Addendum: 04/26/18 at 0910 by FRANKLYN EDWARDS RN per dr Betancur cant do without contrast, has to be with contrast
--- NOTE | 2018-04-26 09:04 | NUR ---
CASE MANAGEMENT: REVIEW 04/26/2018 SI: HYPONATREMIA. PLEURAL EFFUSION T 98 HR 79 RR 18 B/P 99/54 SATS 96% ON RA NA 135 BNP 183 IS: LASIX IV Q12H PROTONIX PO QD : TO TELEMETRY
--- NOTE | 2018-04-26 10:05 | Diagnostic Imaging Report ---
EXAM: XR Chest, 1 View CLINICAL HISTORY: DYSPNEA TECHNIQUE: Frontal view of the chest. COMPARISON: Chest x-ray dated 05/15/18 FINDINGS: Lungs: Unchanged consolidation in the atelectatic right lung. The left lung appears clear. Pleural space: Persistent large right pneumothorax, not significantly changed. Heart: Unremarkable. No cardiomegaly. Mediastinum: Unremarkable. Bones/joints: Unremarkable. Soft tissues: Unchanged appearance of subcutaneous emphysema in the right chest wall and axilla. Vasculature: Atherosclerotic calcifications are noted within the aortic arch. Tubes, lines and devices: Telemetry leads overlie the thorax. IMPRESSION: No significant interval change compared to the prior exam. Persistent large right pneumothorax, and unchanged appearance of subcutaneous emphysema in the right chest wall and axilla.
--- NOTE | 2018-04-26 10:08 | NUR ---
NURSE NOTES: left msg to Dr Betancur re mg level
[2018-04-26 11:26] VITALS: BP 97/55
[2018-04-26] MEDS ORDERED: DiphenhydrAMINE 50mg/ml Inj IVP SCH (12:45)
--- NOTE | 2018-04-26 14:12 | Pulmonology Progress Note ---
Assessment/Plan Problems: (1) Pleural effusion, right (2) Acute encephalopathy (3) Hyponatremia (4) copd Assessment/Plan f/u thoracentesis results cxr shows unchanged pneumothorax tumor markers elevated, awaiting cytology of the fluid respiratory treatment med/surg Na better Subjective ROS Limited/Unobtainable: No Constitutional: Reports: no symptoms HEENT: Repors: no symptoms Respiratory: Reports: no symptoms Allergies: Coded Allergies: LATEX (Verified Allergy, Unknown, 10/07/11) LEVOFLOXACIN (Verified Allergy, 04/12/12) Objective Last 24 Hour Vital Signs Date Time Temp Pulse Resp B/P (MAP) Pulse Ox O2 Delivery O2 Flow Rate FiO2 04/26/18 11:58 77 04/26/18 11:26 97.3 77 18 97/55 (69) 96 04/26/18 09:00 Room Air 04/26/18 08:00 98.0 79 18 99/54 (69) 96 04/26/18 07:59 90 04/26/18 04:00 98.0 79 18 108/62 (77) 96 04/26/18 04:00 83 04/26/18 00:00 98.1 82 18 108/61 (77) 99 04/26/18 00:00 84 04/25/18 21:00 Room Air 04/25/18 20:00 98.9 97 19 105/62 (76) 99 04/25/18 20:00 93 04/25/18 16:22 89 04/25/18 16:00 97.8 84 20 98/65 (76) 96 Intake and Output 04/25/18 04/26/18 19:00 07:00 Intake Total 600 ml Balance 600 ml Intake Oral 600 ml # Voids 3 3 Objective no stress, tumor markers are elevated. 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 Complete 04/23/18 20:00 Rectum VRE Culture - Final NO VANCOMYCIN RESISTANT ENTEROCOCCUS ... Complete 04/23/18 20:00 Rectum - Final NO CARBAPENEM-RESISTANT ENTEROBACTERI... Complete Laboratory Tests 04/26/18 05:50: White Blood Count 9.2, Red Blood Count 4.89, Hemoglobin 13.3, Hematocrit 38.9, Mean Corpuscular Volume 80, Mean Corpuscular Hemoglobin 27.2, Mean Corpuscular Hemoglobin Concent 34.1, Red Cell Distribution Width 12.1, Platelet Count 560H, Mean Platelet Volume 4.8L, Neutrophils (%) (Auto) 81.7H, Lymphocytes (%) (Auto) 8.9L, Monocytes (%) (Auto) 5.9, Eosinophils (%) (Auto) 2.4, Basophils (%) (Auto ) 1.1, Sodium Level 135L, Potassium Level 3.6, Chloride Level 99, Carbon Dioxide Level 29, Anion Gap 7, Blood Urea Nitrogen 11, Creatinine 0.7, Estimat Glomerular Filtration Rate , Glucose Level 86, Osmolality 283L, Uric Acid 3.6, Calcium Level 9.1, Phosphorus Level 3.1, Magnesium Level 1.7L, Total Bilirubin 0.2, Aspartate Amino Transf (AST/SGOT) 17, Alanine Aminotransferase (ALT/SGPT) 25, Alkaline Phosphatase 84, Pro-B-Type Natriuretic Peptide 183H, Total Protein 5.9L, Albumin 2.8L, Globulin 3.1, Albumin/Globulin Ratio 0.9L, Thyroid Stimulating Hormone (TSH) 3.895H, Free Thyroxine 1.09 Current Medications Medications (Trade) Dose Ordered Sig/Jadyn Route PRN Reason Start Time Stop Time Status Last Admin Dose Admin Acetaminophen (Tylenol) 650 mg Q4H PRN ORAL fever 04/23/18 11:00 05/23/18 10:59 Barium Sulfate (Readi-Cat 2) 450 ml NOW PRN ORAL Radiology Procedure 04/25/18 10:45 04/27/18 23:59 Dextrose (Dextrose 50%) 25 ml Q30M PRN IV Hypoglycemia 04/23/18 11:15 05/23/18 11:03 Dextrose (Dextrose 50%) 50 ml Q30M PRN IV hypoglycemia 04/23/18 11:15 05/23/18 11:14 Furosemide (Lasix) 20 mg EVERY 12 HOURS IV 04/25/18 21:00 05/25/18 13:59 04/26/18 08:10 Iopamidol (Isovue-300 100ml) 100 ml NOW PRN INJ Radiology Procedure 04/24/18 14:45 04/26/18 14:41 Iopamidol (Isovue-300 100ml) 100 ml NOW PRN INJ Radiology Procedure 04/25/18 10:45 04/27/18 23:59 Lorazepam (Ativan 2mg/ml 1ml) 0.5 mg Q4H PRN IV For Anxiety 04/23/18 11:00 04/30/18 10:59 Morphine Sulfate (Morphine Sulfate) 1 mg Q4H PRN IVP For Pain 04/23/18 11:00 04/30/18 10:59 Ondansetron HCl (Zofran) 4 mg Q6H PRN IVP Nausea & Vomiting 04/23/18 11:00 05/23/18 10:59 Pantoprazole (Protonix) 40 mg DAILY ORAL 04/24/18 09:00 05/24/18 08:59 04/26/18 08:11 Polyethylene Glycol (Miralax) 17 gm HSPRN PRN ORAL Constipation 04/23/18 11:00 05/23/18 10:59 Zolpidem Tartrate (Ambien) 5 mg HSPRN PRN ORAL Insomnia 04/23/18 11:00 04/30/18 10:59 Sully Betancur MD Apr 26, 2018 14:12
--- NOTE | 2018-04-26 14:19 | Nephrology Progress Note ---
Assessment/Plan Problem List: (1) Hyponatremia Assessment: resolved (2) Pleural effusion, right (3) Severe malnutrition (4) Pneumothorax Assessment: right Assessment Sever HypoNatremia : U Na below 120 likely depletional now 135 Massive Rt Pleural effusion Acute Encephalopathy Proteinuria / HypoAlbuminemia now has pneumothorax Plan Plan: 3% Saline and lasix as needed 2D Echo monitor Lytes check pleural fluid for cytology and culture pneumothorax management Subjective ROS Limited/Unobtainable: No Objective Objective Last 24 Hour Vital Signs Date Time Temp Pulse Resp B/P (MAP) Pulse Ox O2 Delivery O2 Flow Rate FiO2 04/26/18 11:58 77 04/26/18 11:26 97.3 77 18 97/55 (69) 96 04/26/18 09:00 Room Air 04/26/18 08:00 98.0 79 18 99/54 (69) 96 04/26/18 07:59 90 04/26/18 04:00 98.0 79 18 108/62 (77) 96 04/26/18 04:00 83 04/26/18 00:00 98.1 82 18 108/61 (77) 99 04/26/18 00:00 84 04/25/18 21:00 Room Air 04/25/18 20:00 98.9 97 19 105/62 (76) 99 04/25/18 20:00 93 04/25/18 16:22 89 04/25/18 16:00 97.8 84 20 98/65 (76) 96 Intake and Output 04/25/18 04/26/18 19:00 07:00 Intake Total 600 ml Balance 600 ml Intake Oral 600 ml # Voids 3 3 Laboratory Tests 04/26/18 05:50: White Blood Count 9.2, Red Blood Count 4.89, Hemoglobin 13.3, Hematocrit 38.9, Mean Corpuscular Volume 80, Mean Corpuscular Hemoglobin 27.2, Mean Corpuscular Hemoglobin Concent 34.1, Red Cell Distribution Width 12.1, Platelet Count 560H, Mean Platelet Volume 4.8L, Neutrophils (%) (Auto) 81.7H, Lymphocytes (%) (Auto) 8.9L, Monocytes (%) (Auto) 5.9, Eosinophils (%) (Auto) 2.4, Basophils (%) (Auto ) 1.1, Sodium Level 135L, Potassium Level 3.6, Chloride Level 99, Carbon Dioxide Level 29, Anion Gap 7, Blood Urea Nitrogen 11, Creatinine 0.7, Estimat Glomerular Filtration Rate , Glucose Level 86, Osmolality 283L, Uric Acid 3.6, Calcium Level 9.1, Phosphorus Level 3.1, Magnesium Level 1.7L, Total Bilirubin 0.2, Aspartate Amino Transf (AST/SGOT) 17, Alanine Aminotransferase (ALT/SGPT) 25, Alkaline Phosphatase 84, Pro-B-Type Natriuretic Peptide 183H, Total Protein 5.9L, Albumin 2.8L, Globulin 3.1, Albumin/Globulin Ratio 0.9L, Thyroid Stimulating Hormone (TSH) 3.895H, Free Thyroxine 1.09 Height (Feet): 5 Height (Inches): 2.00 Weight (Pounds): 94 General Appearance: no apparent distress Cardiovascular: normal rate Respiratory/Chest: decreased breath sounds Abdomen: soft Carlos Sanchez MD Apr 26, 2018 14:19
--- NOTE | 2018-04-26 15:30 | NUR ---
NURSE NOTES: pt aware of transfer to [facility], no distress. call light within reach. will monitor.
[2018-04-26 15:45] VITALS: BP 103/74
--- NOTE | 2018-04-26 19:14 | NUR ---
HAND-OFF: Report given to BROOKS MAHONEY.
--- NOTE | 2018-04-26 19:15 | NUR ---
NURSE NOTES: Report received from Jennifer Kerr RN. Pt is sitting on the toilet, no distress in RA. Instructed to use call light when moving to the bed, pt verbalized understanding. Pt refused to have VS check up at this time. Will assess later. Will follow plans of care.
[2018-04-27] VITALS: BP 112/76
--- NOTE | 2018-04-27 | NUR ---
NURSE NOTES: ST 171 noted and went back to SR. Pt is resting in the bed w/o distress in RA. VSS. Denied any pain. Bed in lowest position and breaks are engaged. Provided a cup of water as requested. IV is removed d/t c/o of pain per pt. New IV insertion will be given later b/c pt wanted to sleep w/o disturb at this time. Will continue to monitor.
[2018-04-27 04:00] VITALS: BP 128/77
--- NOTE | 2018-04-27 06:39 | General Progress Note ---
Assessment/Plan Problem List: (1) Acute encephalopathy ICD Codes: G93.40 - Encephalopathy, unspecified SNOMED: 18849174, 435916238 (2) Hyponatremia ICD Codes: E87.1 - Hypo-osmolality and hyponatremia SNOMED: 77186439 (3) Pleural effusion, right ICD Codes: J90 - Pleural effusion, not elsewhere classified SNOMED: 54103922 (4) copd (5) Abnormal thyroid function test ICD Codes: R94.6 - Abnormal results of thyroid function studies SNOMED: 554062127 (6) Pneumothorax ICD Codes: J93.9 - Pneumothorax, unspecified SNOMED: 23139628 Assessment/Plan TSH is repeated and is improved free T4 is normal this abnormal thyroid function is still suggestive of "Sick Euthyroid" no need for thyroxine repeat TSH, free T4 in one week hyponatremia is being managed by Dr Sanchez serum Cortisol is normal Subjective Allergies: Coded Allergies: LATEX (Verified Allergy, Unknown, 10/07/11) LEVOFLOXACIN (Verified Allergy, 04/12/12) All Systems: reviewed and negative except above Subjective events noted Objective Last 24 Hour Vital Signs Date Time Temp Pulse Resp B/P (MAP) Pulse Ox O2 Delivery O2 Flow Rate FiO2 04/27/18 00:00 98.2 85 18 112/76 (88) 97 04/26/18 21:00 Room Air 04/26/18 15:45 97.3 99 18 103/74 (84) 96 04/26/18 11:58 77 04/26/18 11:26 97.3 77 18 97/55 (69) 96 04/26/18 09:00 Room Air 04/26/18 08:00 98.0 79 18 99/54 (69) 96 04/26/18 07:59 90 Intake and Output 04/26/18 04/27/18 19:00 07:00 Intake Total 840 ml Balance 840 ml Intake Oral 840 ml # Voids 5 # Bowel Movements 1 Height (Feet): 5 Height (Inches): 2.00 Weight (Pounds): 94 General Appearance: no apparent distress Neck: normal alignment Cardiovascular: normal rate Respiratory/Chest: decreased breath sounds Abdomen: normal bowel sounds Objective Current Medications Medications (Trade) Dose Ordered Sig/Jadyn Route PRN Reason Start Time Stop Time Status Last Admin Dose Admin Acetaminophen (Tylenol) 650 mg Q4H PRN ORAL fever 04/23/18 11:00 05/23/18 10:59 Barium Sulfate (Readi-Cat 2) 450 ml NOW PRN ORAL Radiology Procedure 04/25/18 10:45 04/27/18 23:59 Dextrose (Dextrose 50%) 25 ml Q30M PRN IV Hypoglycemia 04/23/18 11:15 05/23/18 11:03 Dextrose (Dextrose 50%) 50 ml Q30M PRN IV hypoglycemia 04/23/18 11:15 05/23/18 11:14 Iopamidol (Isovue-300 100ml) 100 ml NOW PRN INJ Radiology Procedure 04/25/18 10:45 04/27/18 23:59 Lorazepam (Ativan 2mg/ml 1ml) 0.5 mg Q4H PRN IV For Anxiety 04/23/18 11:00 04/30/18 10:59 Morphine Sulfate (Morphine Sulfate) 1 mg Q4H PRN IVP For Pain 04/23/18 11:00 04/30/18 10:59 Ondansetron HCl (Zofran) 4 mg Q6H PRN IVP Nausea & Vomiting 04/23/18 11:00 05/23/18 10:59 Pantoprazole (Protonix) 40 mg DAILY ORAL 04/24/18 09:00 05/24/18 08:59 04/26/18 08:11 Polyethylene Glycol (Miralax) 17 gm HSPRN PRN ORAL Constipation 04/23/18 11:00 05/23/18 10:59 Zolpidem Tartrate (Ambien) 5 mg HSPRN PRN ORAL Insomnia 04/23/18 11:00 04/30/18 10:59 Jose Ramírez MD Apr 27, 2018 06:39
--- NOTE | 2018-04-27 07:15 | NUR ---
HAND-OFF: Report given to Severo Salguero RN.Stable condition.
--- NOTE | 2018-04-27 07:20 | NUR ---
NURSE NOTES: I received the patient awake and sitting at the side of the bed eating breakfast. Patient alert and oriented x4. Bed in the lowest position and call light within reach. Patient does not display any signs of distress or SOB. I will continue to monitor the patient and implement care.
[2018-04-27 08:00] VITALS: BP 107/73
[2018-04-27 08:44] LABS: EOSINOPHILS % (AUTO) 2.3 % (0.0-3.0); HEMATOCRIT 38.2 % (37.0-47.0); HEMOGLOBIN 12.8 G/DL (12.0-16.0); LYMPHOCYTES % (AUTO) 9.4 % (20.0-45.0); MEAN CORPUSCULAR VOLUME 80 FL (80-99); MONOCYTES % (AUTO) 4.2 % (1.0-10.0); NEUTROPHILS % (AUTO) 83.1 % (45.0-75.0); PLATELET COUNT 551 K/UL (150-450); RED BLOOD COUNT 4.76 M/UL (4.20-5.40); RED CELL DISTRIBUTION WIDTH 12.2 % (11.6-14.8); WHITE BLOOD COUNT 8.7 K/UL (4.8-10.8)
--- NOTE | 2018-04-27 08:54 | Diagnostic Imaging Report ---
Clinical Indication: Abdominal pain, abnormal tumor markers Technique: Patient given oral contrast. IV administration nonionic contrast. Venous phase spiral acquisition obtained through the abdomen and pelvis. Multiplanar reconstructions were generated. Total dose length product 645.29 mGycm. CTDIvol(s) 10.58,10.48 mGy. Dose reduction achieved using automated exposure control Comparison: No comparison abdominal sonograms. Reference made to chest CT dated 04/24/2018 Findings: There is a large indirect left inguinal hernia, containing multiple loops of small bowel. Contrast is seen within the small bowel within the hernia, although does not extend throughout all the the within the hernia. Ingested contrast nonetheless is seen in distal small bowel and in the proximal colon.. Small bowel leading into the hernia is nondilated. There is some fluid within the hernia sac. Small bowel wall within the hernia sac is not dilated, however. There is generalized increased attenuation of the omental fat, although discrete mass is not demonstrated. It is uncertain whether this represents prominent vasculature, actual congestion, or whether there is a component of tumor present.. Abundant veins are seen in the left upper quadrant mesentery. The appendix is normal, best appreciated on the coronal reconstructed images. No definite evidence of diverticulosis or diverticulitis. There is trace free intraperitoneal fluid within the pelvis as well as over the dome of the liver and as previously mentioned within the hernia sac. No small bowel distention or small bowel wall thickening. No free intraperitoneal gas is demonstrated. The liver is unremarkable. No definite surface nodularity. The gallbladder and bile ducts are unremarkable. The pancreas is unremarkable. The spleen and adrenals are unremarkable. The right kidney is unremarkable. Left kidney demonstrates a large 5 cm lower pole cyst. No retroperitoneal or mesenteric mass or adenopathy. No pelvic mass or adenopathy. Uterus and adnexal structures appear unremarkable. The bladder is unremarkable. The included lung bases demonstrate a large right hydropneumothorax. There is interstitial and groundglass opacity within the visualized right lower lobe. However, the extent of this is considerably decreased from the previous chest CT. The degree of right lower lobe expansion appears comparable to the previous study. Subcutaneous emphysema, also previously described, is again demonstrated. A mass in the anterior right pericardial fat pad measuring 18 mm diameter is also described on recent chest CT, incompletely included on the current study. There is a fat-containing Bochdalek hernia on the left. This accounts for the apparent basilar opacity seen on prior chest radiographs. The bones demonstrate degenerative spondylosis changes. Impression: Large left indirect inguinal hernia, containing multiple loops of small bowel. No definite evidence of strangulation or obstruction. Fluid within the hernia sac is most likely herniated free intraperitoneal fluid Generalized increased attenuation of the omental fat. This probably represents congestion and abundant veins, could indicate a component of portal hypertension. However, the possibility of infiltration by tumor should also be considered. Trace free intraperitoneal fluid Large right hydropneumothorax, presumably ex vacuo pneumothorax from previous thoracentesis. Fluid presumably represents reaccumulating pleural fluid. Since prior chest CT of 2 days earlier, improved opacities within the right lower lobe. Suspected this represents improving reexpansion pulmonary edema. This could also reflect improving infiltrate 18 mm diameter right anterior pericardial fat pad mass or adenopathy is demonstrated, also described on recent chest CT, suspicious for neoplasm Other findings as noted, including degenerative spondylosis, left-sided fat-containing Bochdalek hernia, large left renal cyst The CT scanner at [facility] is accredited by the [employer] and the scans are performed using protocols designed to limit radiation exposure to as low as reasonably achievable to attain images of sufficient resolution adequate for diagnostic evaluation.
[2018-04-27 09:01] LABS: ALANINE AMINOTRANSFERASE 28 U/L (12-78); ALBUMIN 2.9 G/DL (3.4-5.0); ALBUMIN/GLOBULIN RATIO 0.8 (1.0-2.7); ALKALINE PHOSPHATASE 92 U/L (46-116); ANION GAP 8 mmol/L (5-15); ASPARTATE AMINO TRANSFERASE 21 U/L (15-37); BILIRUBIN,TOTAL 0.3 MG/DL (0.2-1.0); BLOOD UREA NITROGEN 11 mg/dL (7-18); CALCIUM 9.3 MG/DL (8.5-10.1); CARBON DIOXIDE 26 MMOL/L (21-32); CHLORIDE 97 MMOL/L (98-107); CREATININE 0.7 MG/DL (0.55-1.30); POTASSIUM 3.9 MMOL/L (3.5-5.1); SODIUM 131 MMOL/L (136-145)
--- NOTE | 2018-04-27 10:16 | Cardiology Report ---
APPROVED REPORT EXAM: Two-dimensional and M-mode echocardiogram with Doppler and color Doppler. INDICATION Congestive Heart Failure M-Mode DIMENSIONS IVSd1.5 (0.7-1.1cm)Left Atrium (MM)2.5 (1.6-4.0cm) LVDd3.5 (3.5-5.6cm)Aortic Root2.3 (2.0-3.7cm) PWd1.2 (0.7-1.1cm)Aortic Cusp Exc.1.7 (1.5-2.0cm) LVDs1.8 (2.5-4.0cm) PWs1.6 cm Technically difficult study due to poor acoustic windows. Study quality precludes accurate assessment of regional wall motion. Normal left ventricular chamber size, systolic function and wall motion. Left ventricular ejection fraction estimated to be 60 %. Mild left ventricular hypertrophy. No evidence of pericardial effusion. All other cardiac chamber sizes are within normal limits. Mild focal aortic valve sclerosis with adequate cusp excursion. Mildly thickened mitral valve leaflets with normal excursion. Mild mitral annulus and aortic root calcification. Normal pulmonic valve structure. Normal tricuspid valve structure. IVC is normal in size with physiological collapse. A color flow and spectral Doppler study was performed and revealed: No aortic insufficiency. No mitral regurgitation. Mitral diastolic velocities suggest mild left ventricular diastolic dysfunction (Grade I). Moderate tricuspid regurgitation. Tricuspid systolic velocities suggests peak right ventricular systolic pressure of 87 mmHg, consistent with severe pulmonary hypertension. Trace pulmonic regurgitation present.
--- NOTE | 2018-04-27 10:53 | Diagnostic Imaging Report ---
Indication: Cough Technique: One view of the chest Comparison: 04/26/2018 Findings: Allowing for differences in positioning, stable or perhaps slightly improved previously demonstrated right-sided ex vacuo pneumothorax. There is improved but persistent lower lobe pulmonary parenchymal opacity. Right-sided pleural effusion appears stable or slightly increased. Left lung demonstrates some left basilar atelectasis, otherwise left lung and pleural space are clear. There is decreasing subcutaneous emphysema Impression: Over one day, stable or slightly improved right-sided ex vacuo pneumothorax, stable or slightly increased right-sided pleural effusion Decreased subcutaneous emphysema. Other findings as noted
--- NOTE | 2018-04-27 11:48 | Pulmonology Progress Note ---
Assessment/Plan Problems: (1) Pleural effusion, right (2) Acute encephalopathy (3) Hyponatremia (4) copd Assessment/Plan CT abdomen and pelvis reviewed cxr shows unchanged pneumothorax tumor markers elevated, awaiting cytology of the fluid respiratory treatment med/surg Na better Subjective ROS Limited/Unobtainable: No Constitutional: Reports: no symptoms HEENT: Repors: no symptoms Respiratory: Reports: no symptoms Allergies: Coded Allergies: LATEX (Verified Allergy, Unknown, 10/07/11) LEVOFLOXACIN (Verified Allergy, 04/12/12) Objective Last 24 Hour Vital Signs Date Time Temp Pulse Resp B/P (MAP) Pulse Ox O2 Delivery O2 Flow Rate FiO2 04/27/18 09:00 Room Air 04/27/18 08:00 97.8 80 18 107/73 (84) 96 04/27/18 04:00 98.0 75 18 128/77 (94) 96 04/27/18 00:00 98.2 85 18 112/76 (88) 97 04/26/18 21:00 Room Air 04/26/18 15:45 97.3 99 18 103/74 (84) 96 04/26/18 11:58 77 Intake and Output 04/26/18 04/27/18 18:59 06:59 Intake Total 840 ml Balance 840 ml Intake Oral 840 ml # Voids 5 3 # Bowel Movements 1 1 Objective no stress, tumor markers are elevated. 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 Laboratory Tests 04/27/18 08:09: White Blood Count 8.7, Red Blood Count 4.76, Hemoglobin 12.8, Hematocrit 38.2, Mean Corpuscular Volume 80, Mean Corpuscular Hemoglobin 27.0, Mean Corpuscular Hemoglobin Concent 33.6, Red Cell Distribution Width 12.2, Platelet Count 551H, Mean Platelet Volume 4.9L, Neutrophils (%) (Auto) 83.1H, Lymphocytes (%) (Auto) 9.4L, Monocytes (%) (Auto) 4.2, Eosinophils (%) (Auto) 2.3, Basophils (%) (Auto ) 1.0, Sodium Level 131L, Potassium Level 3.9, Chloride Level 97L, Carbon Dioxide Level 26, Anion Gap 8, Blood Urea Nitrogen 11, Creatinine 0.7, Estimat Glomerular Filtration Rate , Glucose Level 88, Calcium Level 9.3, Total Bilirubin 0.3, Aspartate Amino Transf (AST/SGOT) 21, Alanine Aminotransferase ( ALT/SGPT) 28, Alkaline Phosphatase 92, Pro-B-Type Natriuretic Peptide 312H, Total Protein 6.7, Albumin 2.9L, Globulin 3.8, Albumin/Globulin Ratio 0.8L Current Medications Medications (Trade) Dose Ordered Sig/Jadyn Route PRN Reason Start Time Stop Time Status Last Admin Dose Admin Acetaminophen (Tylenol) 650 mg Q4H PRN ORAL fever 04/23/18 11:00 05/23/18 10:59 Barium Sulfate (Readi-Cat 2) 450 ml NOW PRN ORAL Radiology Procedure 04/25/18 10:45 04/27/18 23:59 Dextrose (Dextrose 50%) 25 ml Q30M PRN IV Hypoglycemia 04/23/18 11:15 05/23/18 11:03 Dextrose (Dextrose 50%) 50 ml Q30M PRN IV hypoglycemia 04/23/18 11:15 05/23/18 11:14 Iopamidol (Isovue-300 100ml) 100 ml NOW PRN INJ Radiology Procedure 04/25/18 10:45 04/27/18 23:59 Lorazepam (Ativan 2mg/ml 1ml) 0.5 mg Q4H PRN IV For Anxiety 04/23/18 11:00 04/30/18 10:59 Morphine Sulfate (Morphine Sulfate) 1 mg Q4H PRN IVP For Pain 04/23/18 11:00 04/30/18 10:59 Ondansetron HCl (Zofran) 4 mg Q6H PRN IVP Nausea & Vomiting 04/23/18 11:00 05/23/18 10:59 Pantoprazole (Protonix) 40 mg DAILY ORAL 04/24/18 09:00 05/24/18 08:59 04/27/18 09:01 Polyethylene Glycol (Miralax) 17 gm HSPRN PRN ORAL Constipation 04/23/18 11:00 05/23/18 10:59 Zolpidem Tartrate (Ambien) 5 mg HSPRN PRN ORAL Insomnia 04/23/18 11:00 04/30/18 10:59 Sully Betancur MD Apr 27, 2018 11:48
[2018-04-27 12:00] VITALS: BP 114/65
--- NOTE | 2018-04-27 13:53 | Nephrology Progress Note ---
Assessment/Plan Problem List: (1) Hyponatremia Assessment: resolved (2) Pleural effusion, right (3) Severe malnutrition (4) Pneumothorax Assessment: right Assessment Sever HypoNatremia : U Na below 120 likely depletional now 135 Massive Rt Pleural effusion Acute Encephalopathy Proteinuria / HypoAlbuminemia now has pneumothorax Plan Plan: 3% Saline and lasix as needed 2D Echo monitor Lytes check pleural fluid for cytology and culture pneumothorax management Subjective ROS Limited/Unobtainable: No Constitutional: Reports: malaise Objective Objective Last 24 Hour Vital Signs Date Time Temp Pulse Resp B/P (MAP) Pulse Ox O2 Delivery O2 Flow Rate FiO2 04/27/18 12:00 98.7 78 18 114/65 (81) 95 04/27/18 09:00 Room Air 04/27/18 08:00 97.8 80 18 107/73 (84) 96 04/27/18 04:00 98.0 75 18 128/77 (94) 96 04/27/18 00:00 98.2 85 18 112/76 (88) 97 04/26/18 21:00 Room Air 04/26/18 15:45 97.3 99 18 103/74 (84) 96 Intake and Output 04/26/18 04/27/18 18:59 06:59 Intake Total 840 ml Balance 840 ml Intake Oral 840 ml # Voids 5 3 # Bowel Movements 1 1 Laboratory Tests 04/27/18 08:09: White Blood Count 8.7, Red Blood Count 4.76, Hemoglobin 12.8, Hematocrit 38.2, Mean Corpuscular Volume 80, Mean Corpuscular Hemoglobin 27.0, Mean Corpuscular Hemoglobin Concent 33.6, Red Cell Distribution Width 12.2, Platelet Count 551H, Mean Platelet Volume 4.9L, Neutrophils (%) (Auto) 83.1H, Lymphocytes (%) (Auto) 9.4L, Monocytes (%) (Auto) 4.2, Eosinophils (%) (Auto) 2.3, Basophils (%) (Auto ) 1.0, Sodium Level 131L, Potassium Level 3.9, Chloride Level 97L, Carbon Dioxide Level 26, Anion Gap 8, Blood Urea Nitrogen 11, Creatinine 0.7, Estimat Glomerular Filtration Rate , Glucose Level 88, Calcium Level 9.3, Total Bilirubin 0.3, Aspartate Amino Transf (AST/SGOT) 21, Alanine Aminotransferase ( ALT/SGPT) 28, Alkaline Phosphatase 92, Pro-B-Type Natriuretic Peptide 312H, Total Protein 6.7, Albumin 2.9L, Globulin 3.8, Albumin/Globulin Ratio 0.8L Height (Feet): 5 Height (Inches): 2.00 Weight (Pounds): 94 General Appearance: no apparent distress Cardiovascular: normal rate Respiratory/Chest: decreased breath sounds Abdomen: distended Objective no change Carlos Sanchez MD Apr 27, 2018 13:53
[2018-04-27] MEDS ORDERED: NaCl 3% 500ml 250 ML IV SCH (15:00)
[2018-04-27 16:00] VITALS: BP 111/71
--- NOTE | 2018-04-27 19:33 | NUR ---
HAND-OFF: Report given to MARU Huizar.
--- NOTE | 2018-04-27 19:34 | NUR ---
NURSE NOTES: BEDSIDE REPORT RECEIVED FROM MARU GODOY. PT IS X4, ABLE TO FOLLOW COMMANDS, MAKE NEEDS KNOWN. COIL SHAPER SHOWING NSR. SATING 97 ON RA. PT AMBULATES W/ ASSIST. SKIN CLEAN, DRY, INTACT. RH 22 RUNNING 3% NACL @ 30; ASYMPTOMATIC. BED IS LOCKED IN LOWEST POSITION, SRX3, CALL OCHOA W/ IN REACH. ORDER TO TXFR TO [facility], WILL CARRY OUT AND CONTINUE TO MONITOR.
[2018-04-27 20:00] VITALS: BP 110/69
--- NOTE | 2018-04-27 22:00 | NUR ---
TRANSFER TO FLOOR: Patient transferred to [facility], per DR. UPTON. Report given to MARU MCCRARY. Belongings and medications given to MARU MCCRARY. Family and or S/O informed of transfer.
--- NOTE | 2018-04-27 22:00 | NUR ---
NURSE NOTES: RECEIVED PATIENT FROM TELE, GOT REPORT FROM MARU PÉREZ. PATIENT IN BED, AOX4. IV IN PLACE, PATENT, RUNNING FLUIDS. NO COMPLAINTS OF PAIN AT THIS TIME. NO S/S DISTRESS NOTED. REVIEWED PATIENT BELONGINGS, PATIENT HAD $54 THAT SHE REFUSED TO PUT IN THE SAFE, PATIENT HAD SIGNED THE BELONGINGS LIST. BED IN LOWEST POSITION, CALL LIGHT WITHIN REACH, BED ALARM ON. WILL CONTINUE TO MONITOR.
[2018-04-28] VITALS (7 sets, daily range): BP systolic 109–134; BP diastolic 63–83
--- NOTE | 2018-04-28 05:50 | NUR ---
NURSE NOTES: PATIENT IN BED, NO DISTRESS.
--- NOTE | 2018-04-28 06:42 | General Progress Note ---
Assessment/Plan Problem List: (1) Acute encephalopathy ICD Codes: G93.40 - Encephalopathy, unspecified SNOMED: 14004472, 938384643 (2) Hyponatremia ICD Codes: E87.1 - Hypo-osmolality and hyponatremia SNOMED: 79191289 (3) Pleural effusion, right ICD Codes: J90 - Pleural effusion, not elsewhere classified SNOMED: 30457871 (4) copd (5) Abnormal thyroid function test ICD Codes: R94.6 - Abnormal results of thyroid function studies SNOMED: 628677229 (6) Pneumothorax ICD Codes: J93.9 - Pneumothorax, unspecified SNOMED: 72323796 Assessment/Plan TSH is repeated and is improved free T4 is normal this abnormal thyroid function is still suggestive of "Sick Euthyroid" no need for thyroxine repeat TSH, free T4 in one week hyponatremia is being managed by Dr Sanchez serum Cortisol is normal Subjective Allergies: Coded Allergies: LATEX (Verified Allergy, Unknown, 10/07/11) LEVOFLOXACIN (Verified Allergy, 04/12/12) All Systems: reviewed and negative except above Subjective events noted Objective Last 24 Hour Vital Signs Date Time Temp Pulse Resp B/P (MAP) Pulse Ox O2 Delivery O2 Flow Rate FiO2 04/28/18 04:00 98.8 81 18 109/63 (78) 98 04/28/18 00:00 98.4 85 18 127/76 (93) 97 04/27/18 21:00 Room Air 04/27/18 20:00 98.6 74 18 110/69 (83) 97 04/27/18 16:00 97.9 86 18 111/71 (84) 96 04/27/18 12:00 98.7 78 18 114/65 (81) 95 04/27/18 09:00 Room Air 04/27/18 08:00 97.8 80 18 107/73 (84) 96 Intake and Output 04/27/18 04/28/18 19:00 07:00 Intake Total 770 ml 240 ml Balance 770 ml 240 ml Intake Oral 740 ml 240 ml IV Total 30 ml # Voids 3 2 Laboratory Tests 04/27/18 08:09: White Blood Count 8.7, Red Blood Count 4.76, Hemoglobin 12.8, Hematocrit 38.2, Mean Corpuscular Volume 80, Mean Corpuscular Hemoglobin 27.0, Mean Corpuscular Hemoglobin Concent 33.6, Red Cell Distribution Width 12.2, Platelet Count 551H, Mean Platelet Volume 4.9L, Neutrophils (%) (Auto) 83.1H, Lymphocytes (%) (Auto) 9.4L, Monocytes (%) (Auto) 4.2, Eosinophils (%) (Auto) 2.3, Basophils (%) (Auto ) 1.0, Sodium Level 131L, Potassium Level 3.9, Chloride Level 97L, Carbon Dioxide Level 26, Anion Gap 8, Blood Urea Nitrogen 11, Creatinine 0.7, Estimat Glomerular Filtration Rate , Glucose Level 88, Calcium Level 9.3, Total Bilirubin 0.3, Aspartate Amino Transf (AST/SGOT) 21, Alanine Aminotransferase ( ALT/SGPT) 28, Alkaline Phosphatase 92, Pro-B-Type Natriuretic Peptide 312H, Total Protein 6.7, Albumin 2.9L, Globulin 3.8, Albumin/Globulin Ratio 0.8L Height (Feet): 5 Height (Inches): 2.00 Weight (Pounds): 94 General Appearance: no apparent distress Neck: normal alignment Cardiovascular: normal rate Respiratory/Chest: normal breath sounds Abdomen: normal bowel sounds Objective Current Medications Medications (Trade) Dose Ordered Sig/Jadyn Route PRN Reason Start Time Stop Time Status Last Admin Dose Admin Acetaminophen (Tylenol) 650 mg Q4H PRN ORAL fever 04/23/18 11:00 05/23/18 10:59 Dextrose (Dextrose 50%) 25 ml Q30M PRN IV Hypoglycemia 04/23/18 11:15 05/23/18 11:03 Dextrose (Dextrose 50%) 50 ml Q30M PRN IV hypoglycemia 04/23/18 11:15 05/23/18 11:14 Lorazepam (Ativan 2mg/ml 1ml) 0.5 mg Q4H PRN IV For Anxiety 04/23/18 11:00 04/30/18 10:59 Morphine Sulfate (Morphine Sulfate) 1 mg Q4H PRN IVP For Pain 04/23/18 11:00 04/30/18 10:59 Ondansetron HCl (Zofran) 4 mg Q6H PRN IVP Nausea & Vomiting 04/23/18 11:00 05/23/18 10:59 Pantoprazole (Protonix) 40 mg DAILY ORAL 04/24/18 09:00 05/24/18 08:59 04/27/18 09:01 Polyethylene Glycol (Miralax) 17 gm HSPRN PRN ORAL Constipation 04/23/18 11:00 05/23/18 10:59 Zolpidem Tartrate (Ambien) 5 mg HSPRN PRN ORAL Insomnia 04/23/18 11:00 04/30/18 10:59 Jose Ramírez MD Apr 28, 2018 06:42
[2018-04-28 07:08] LABS: ALANINE AMINOTRANSFERASE 22 U/L (12-78); ALBUMIN 2.2 G/DL (3.4-5.0); ALBUMIN/GLOBULIN RATIO 0.8 (1.0-2.7); ALKALINE PHOSPHATASE 67 U/L (46-116); ANION GAP 6 mmol/L (5-15); ASPARTATE AMINO TRANSFERASE 15 U/L (15-37); BILIRUBIN,TOTAL 0.1 MG/DL (0.2-1.0); BLOOD UREA NITROGEN 12 mg/dL (7-18); CALCIUM 8.6 MG/DL (8.5-10.1); CARBON DIOXIDE 29 MMOL/L (21-32); CHLORIDE 103 MMOL/L (98-107); CREATININE 0.7 MG/DL (0.55-1.30); PHOSPHORUS 2.9 MG/DL (2.5-4.9); POTASSIUM 3.5 MMOL/L (3.5-5.1); SODIUM 138 MMOL/L (136-145)
--- NOTE | 2018-04-28 07:29 | NUR ---
HAND-OFF: Report given to PATTIE HUMPHREY RN.
--- NOTE | 2018-04-28 07:30 | NUR ---
NURSE NOTES: Patient is awake and sitting up at the edge of the bed eating breakfast. Tolerated well. Patient is able to verbalize needs. Patient is stable with no s/s acute distress. Denies pain at this time. plan of care discussed with patient, verbalized understanding. Patient is comfortable in bed with call light within reach. Will continue to monitor.
--- NOTE | 2018-04-28 12:48 | Nephrology Progress Note ---
Assessment/Plan Problem List: (1) Hyponatremia Assessment: resolved (2) Pleural effusion, right (3) Severe malnutrition (4) Pneumothorax Assessment: right Assessment Sever HypoNatremia : U Na below 120 likely depletional now 135 Massive Rt Pleural effusion Acute Encephalopathy Proteinuria / HypoAlbuminemia now has pneumothorax Plan Plan: mag supplement as needed 3% Saline and lasix as needed 2D Echo monitor Lytes check pleural fluid for cytology and culture pneumothorax management Subjective ROS Limited/Unobtainable: No Constitutional: Reports: malaise Objective Objective Last 24 Hour Vital Signs Date Time Temp Pulse Resp B/P (MAP) Pulse Ox O2 Delivery O2 Flow Rate FiO2 04/28/18 09:00 Room Air 04/28/18 08:00 99.9 91 20 120/80 (93) 96 04/28/18 04:00 98.8 81 18 109/63 (78) 98 04/28/18 00:00 98.4 85 18 127/76 (93) 97 04/27/18 21:00 Room Air 04/27/18 20:00 98.6 74 18 110/69 (83) 97 04/27/18 16:00 97.9 86 18 111/71 (84) 96 Intake and Output 04/27/18 04/28/18 18:59 06:59 Intake Total 770 ml 240 ml Balance 770 ml 240 ml Intake Oral 740 ml 240 ml IV Total 30 ml # Voids 3 2 Laboratory Tests 04/28/18 07:00: Sodium Level 138, Potassium Level 3.5, Chloride Level 103, Carbon Dioxide Level 29, Anion Gap 6, Blood Urea Nitrogen 12, Creatinine 0.7, Estimat Glomerular Filtration Rate , Glucose Level 86, Osmolality 281L, Uric Acid 3.8, Calcium Level 8.6, Phosphorus Level 2.9, Magnesium Level 1.3L, Total Bilirubin 0.1L, Aspartate Amino Transf (AST/SGOT) 15, Alanine Aminotransferase (ALT/SGPT) 22, Alkaline Phosphatase 67, Total Protein 5.1L, Albumin 2.2L, Globulin 2.9, Albumin /Globulin Ratio 0.8L Height (Feet): 5 Height (Inches): 2.00 Weight (Pounds): 94 General Appearance: no apparent distress Cardiovascular: tachycardia Respiratory/Chest: decreased breath sounds Abdomen: soft Objective no change Carlos Sanchez MD Apr 28, 2018 12:48
--- NOTE | 2018-04-28 13:23 | NUR ---
RD ASSESSMENT & RECOMMENDATIONS SEE CARE ACTIVITY FOR COMPLETE ASSESSMENT DAILY ESTIMATED NEEDS: Needs based on Pulmonary, hyponatremia/ 49kg 25-30 kcals/kg 1826-8691 total kcals 1-1.5 g protein/kg 49-73 g total protein 20-22 mL/kg 980-1078 total fluid mLs NUTRITION DIAGNOSIS: Altered nutrition related lab values R/T clinical condition as evidenced by critically low Na upon adm (116* -> now wnl), low osmolality (281), low mag (1.3). CURRENT DIET:REGULAR PO DIET RECOMMENDATIONS: REGULAR/ texture as tolerated ADDITIONAL RECOMMENDATIONS: * Calibrated bedscale wt for accurate CBW * Monitor lytes, replete as needed * Monitor PO intake, need for additional snacks or HPN
--- NOTE | 2018-04-28 14:18 | Pulmonology Progress Note ---
Assessment/Plan Problems: (1) Pleural effusion, right (2) Acute encephalopathy (3) Hyponatremia (4) copd Assessment/Plan CT abdomen and pelvis reviewed cxr shows unchanged pneumothorax tumor markers elevated, awaiting cytology of the fluid, malignant cells. in pleural fluid with Mullerian origin. respiratory treatment Dr. Dumont for oncology called to d/w pt about different options as outpatient Subjective ROS Limited/Unobtainable: No Allergies: Coded Allergies: LATEX (Verified Allergy, Unknown, 10/07/11) LEVOFLOXACIN (Verified Allergy, 04/12/12) Objective Last 24 Hour Vital Signs Date Time Temp Pulse Resp B/P (MAP) Pulse Ox O2 Delivery O2 Flow Rate FiO2 04/28/18 09:00 Room Air 04/28/18 08:00 99.9 91 20 120/80 (93) 96 04/28/18 04:00 98.8 81 18 109/63 (78) 98 04/28/18 00:00 98.4 85 18 127/76 (93) 97 04/27/18 21:00 Room Air 04/27/18 20:00 98.6 74 18 110/69 (83) 97 04/27/18 16:00 97.9 86 18 111/71 (84) 96 Intake and Output 04/27/18 04/28/18 18:59 06:59 Intake Total 770 ml 240 ml Balance 770 ml 240 ml Intake Oral 740 ml 240 ml IV Total 30 ml # Voids 3 2 Objective no stress, tumor markers are elevated. 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 Laboratory Tests 04/28/18 07:00: Sodium Level 138, Potassium Level 3.5, Chloride Level 103, Carbon Dioxide Level 29, Anion Gap 6, Blood Urea Nitrogen 12, Creatinine 0.7, Estimat Glomerular Filtration Rate , Glucose Level 86, Osmolality 281L, Uric Acid 3.8, Calcium Level 8.6, Phosphorus Level 2.9, Magnesium Level 1.3L, Total Bilirubin 0.1L, Aspartate Amino Transf (AST/SGOT) 15, Alanine Aminotransferase (ALT/SGPT) 22, Alkaline Phosphatase 67, Total Protein 5.1L, Albumin 2.2L, Globulin 2.9, Albumin /Globulin Ratio 0.8L Current Medications Medications (Trade) Dose Ordered Sig/Jadyn Route PRN Reason Start Time Stop Time Status Last Admin Dose Admin Acetaminophen (Tylenol) 650 mg Q4H PRN ORAL fever 04/23/18 11:00 05/23/18 10:59 Dextrose (Dextrose 50%) 25 ml Q30M PRN IV Hypoglycemia 04/23/18 11:15 05/23/18 11:03 Dextrose (Dextrose 50%) 50 ml Q30M PRN IV hypoglycemia 04/23/18 11:15 05/23/18 11:14 Lorazepam (Ativan 2mg/ml 1ml) 0.5 mg Q4H PRN IV For Anxiety 04/23/18 11:00 04/30/18 10:59 Magnesium Sulfate 100 ml @ 100 mls/hr Q1H IVPB 04/28/18 13:00 04/28/18 16:59 04/28/18 14:07 Morphine Sulfate (Morphine Sulfate) 1 mg Q4H PRN IVP For Pain 04/23/18 11:00 04/30/18 10:59 Ondansetron HCl (Zofran) 4 mg Q6H PRN IVP Nausea & Vomiting 04/23/18 11:00 05/23/18 10:59 Pantoprazole (Protonix) 40 mg DAILY ORAL 04/24/18 09:00 05/24/18 08:59 04/28/18 09:19 Polyethylene Glycol (Miralax) 17 gm HSPRN PRN ORAL Constipation 04/23/18 11:00 05/23/18 10:59 Zolpidem Tartrate (Ambien) 5 mg HSPRN PRN ORAL Insomnia 04/23/18 11:00 04/30/18 10:59 Sully Betancur MD Apr 28, 2018 14:18
[2018-04-28] MEDS ORDERED: Gadavist 7.5mMol/7.5ml vial IV PRN (18:30)
--- NOTE | 2018-04-28 18:45 | NUR ---
NURSE NOTES: Patient taken to MRI via wheelchair and assisted by RN.
--- NOTE | 2018-04-28 19:45 | NUR ---
NURSE NOTES: Received report from MARU Petty. Patient currently off unit, in MRI.
--- NOTE | 2018-04-28 19:58 | NUR ---
HAND-OFF: Report given to Shikha RN. Patient is still in MRI.
--- NOTE | 2018-04-28 20:30 | NUR ---
NURSE NOTES: Patient back on unit from MRI via tech in wheelchair. A&Ox4. On room air, no signs of labored breathing or distress. Sitting in bed. Will continue with plan of care.
--- NOTE | 2018-04-29 03:01 | Consultation ---
DATE OF CONSULTATION: 04/28/2018 NOTE: POOR AUDIO HEMATOLOGY/ONCOLOGY CONSULTATION CONSULTING PHYSICIAN: Jayjay Dumont M.D. REFERRING PHYSICIAN: Sully Betancur M.D. REASON FOR CONSULTATION: Malignant pleural effusion. HISTORY OF PRESENT ILLNESS: The patient is an extremely pleasant unfortunate 77-year-old female with no significant past medical history who has been presented to the hospital with significant shortness of breath as well as hyponatremia. The patient apparently does have history of COPD per reports from the chart. However, the patient denies any history of tobacco use. The patient also had significant weakness. The patient denies any significant weight loss. Upon evaluation, the patient did undergo chest x-ray which demonstrated evidence of right lower lobe effusion. Subsequently, the patient did undergo a thoracentesis. Cytology apparently has demonstrated evidence of malignant pleural effusion. PAST MEDICAL HISTORY: COPD per report, history of umbilical hernia, and history of foot surgery. PAST SURGICAL HISTORY: As noted above. MEDICATIONS: Per electronic medical records. FAMILY HISTORY: The patient denies any family history of cancers. SOCIAL HISTORY: The patient denies any tobacco, alcohol, or drugs. The patient apparently resides in an assisted living. REVIEW OF SYSTEMS: CONSTITUTIONAL: The patient does complain of some headaches. PULMONARY: The patient does complain of shortness of breath. CARDIAC: The patient denies chest pain. GASTROINTESTINAL: Does complain of some abdominal pain NEUROLOGIC: Nonfocal. SKIN: The patient has petechiae. The patient apparently has had a past history of mammogram mammograms at this time. PHYSICAL EXAMINATION: GENERAL: The patient is a very thin, frail female, in no acute distress. VITAL SIGNS: Temperature of 98 degrees, pulse 72, breathing at 20, and blood pressure 130/70. HEAD AND NECK: Sclerae anicteric. CHEST: Rhonchi at the bases. Decreased sounds at the bases. CARDIOVASCULAR: Regular rhythm. S1 and S2. ABDOMEN: Soft and nontender. BREASTS: The patient was evaluated by correctional officer in the room. No palpable masses noted. There is hyperpigmentation of the left abdominal area. EXTREMITIES: Edema bilaterally. LABORATORY DATA: Laboratory investigation studies have been noted. Of note, on 04/23/2018, she had white count of 10.4, hemoglobin 13.5, and platelet count of 562,000. Sodium as of today is 138 with a creatinine of 0.7, magnesium 1.3, albumin of 2.2, and TSH of 3.895. IMAGING: She has undergone a CT scan of the abdomen and pelvis on 04/26/2018 demonstrating large indirect inguinal hernia containing multiple loops of bowel, generalized increased accumulation of the omental fat, although discrete mass is not demonstrated. Liver was noted to be unremarkable with no definite nodularity. Pancreas was within normal limits. Spleen is within normal limits. Left 5 cm renal cyst was noted. No evidence of intramesenteric evaluation was noted. Lung bases demonstrated a large right hydropneumothorax with interstitial ground-glass opacity within the visualized right lobe. However, the extent is considerably decreased chest CT. A mass in the anterior right pericardial fat measuring 18 mm diameter is also described on recent CT scan, incompletely including the current study. The conclusion of the study demonstrated the right lower lobe, suspect improving reexpansion pulmonary edema, 18 mm diameter right anterior pericardial fat pad mass has been noted or adenopathy demonstrated. ASSESSMENT AND PLAN: 1. Malignant pleural effusion with a possible pulmonary nodule. So, my recommendation at this point in time is to proceed with a repeat CT scan of chest since the patient is currently post thoracentesis to barely find rather 1 cm lung mass. The patient does have a pericardial area of mass or adenopathy. The patient outpatient PET scan as well. The patient's pathology will be discussed with the pathologist in the morning to see if this is consistent with primary lung cancer. 2. Headache. Brain MRI will be done. 3. Lower extremity edema. Venous duplex will be done as well. 4. Hyponatremia, resolved. Jayjay Dumont M.D. DR: RASHAAD JOB#: [id number] CC:
[2018-04-29 04:00] VITALS: BP 131/70
--- NOTE | 2018-04-29 06:28 | General Progress Note ---
Assessment/Plan Problem List: (1) Acute encephalopathy ICD Codes: G93.40 - Encephalopathy, unspecified SNOMED: 98243926, 585980995 (2) Hyponatremia ICD Codes: E87.1 - Hypo-osmolality and hyponatremia SNOMED: 65301116 (3) Pleural effusion, right ICD Codes: J90 - Pleural effusion, not elsewhere classified SNOMED: 29105113 (4) copd (5) Abnormal thyroid function test ICD Codes: R94.6 - Abnormal results of thyroid function studies SNOMED: 791528917 (6) Pneumothorax ICD Codes: J93.9 - Pneumothorax, unspecified SNOMED: 95047834 Assessment/Plan TSH is repeated and is improved free T4 is normal this abnormal thyroid function is still suggestive of "Sick Euthyroid" no need for thyroxine repeat TSH, free T4 in one week hyponatremia is being managed by Dr Sanchez serum Cortisol is normal Subjective Allergies: Coded Allergies: LATEX (Verified Allergy, Unknown, 10/07/11) LEVOFLOXACIN (Verified Allergy, 04/12/12) All Systems: reviewed and negative except above Subjective events noted Objective Last 24 Hour Vital Signs Date Time Temp Pulse Resp B/P (MAP) Pulse Ox O2 Delivery O2 Flow Rate FiO2 04/29/18 04:00 98.8 81 18 131/70 (90) 96 04/28/18 23:34 97.3 78 18 120/68 (85) 95 04/28/18 21:00 Room Air 04/28/18 20:00 98.1 84 18 134/83 (100) 98 04/28/18 16:00 99.0 89 20 127/75 (92) 95 04/28/18 12:00 100.4 93 18 131/79 (96) 94 04/28/18 09:00 Room Air 04/28/18 08:00 99.9 91 20 120/80 (93) 96 Intake and Output 04/28/18 04/29/18 19:00 07:00 Intake Total 800 ml 100 ml Balance 800 ml 100 ml Intake Oral 800 ml IV Total 100 ml # Voids 4 3 Laboratory Tests 04/28/18 07:00: Sodium Level 138, Potassium Level 3.5, Chloride Level 103, Carbon Dioxide Level 29, Anion Gap 6, Blood Urea Nitrogen 12, Creatinine 0.7, Estimat Glomerular Filtration Rate , Glucose Level 86, Osmolality 281L, Uric Acid 3.8, Calcium Level 8.6, Phosphorus Level 2.9, Magnesium Level 1.3L, Total Bilirubin 0.1L, Aspartate Amino Transf (AST/SGOT) 15, Alanine Aminotransferase (ALT/SGPT) 22, Alkaline Phosphatase 67, Total Protein 5.1L, Albumin 2.2L, Globulin 2.9, Albumin /Globulin Ratio 0.8L 04/28/18 18:30: Carcinoembryonic Antigen [Pending] Height (Feet): 5 Height (Inches): 2.00 Weight (Pounds): 119 General Appearance: no apparent distress Neck: normal alignment Cardiovascular: normal rate Respiratory/Chest: normal breath sounds Abdomen: normal bowel sounds Objective Current Medications Medications (Trade) Dose Ordered Sig/Jadyn Route PRN Reason Start Time Stop Time Status Last Admin Dose Admin Acetaminophen (Tylenol) 650 mg Q4H PRN ORAL fever 04/23/18 11:00 05/23/18 10:59 Dextrose (Dextrose 50%) 25 ml Q30M PRN IV Hypoglycemia 04/23/18 11:15 05/23/18 11:03 Dextrose (Dextrose 50%) 50 ml Q30M PRN IV hypoglycemia 04/23/18 11:15 05/23/18 11:14 Gadobutrol (Gadavist) 7.5 mmol NOW PRN IV Radiology Procedure 04/28/18 18:30 05/02/18 18:30 Lorazepam (Ativan 2mg/ml 1ml) 0.5 mg Q4H PRN IV For Anxiety 04/23/18 11:00 04/30/18 10:59 Morphine Sulfate (Morphine Sulfate) 1 mg Q4H PRN IVP For Pain 04/23/18 11:00 04/30/18 10:59 Ondansetron HCl (Zofran) 4 mg Q6H PRN IVP Nausea & Vomiting 04/23/18 11:00 05/23/18 10:59 Pantoprazole (Protonix) 40 mg DAILY ORAL 04/24/18 09:00 05/24/18 08:59 04/28/18 09:19 Polyethylene Glycol (Miralax) 17 gm HSPRN PRN ORAL Constipation 04/23/18 11:00 05/23/18 10:59 Zolpidem Tartrate (Ambien) 5 mg HSPRN PRN ORAL Insomnia 04/23/18 11:00 04/30/18 10:59 Jose Ramírez MD Apr 29, 2018 06:28
--- NOTE | 2018-04-29 07:39 | NUR ---
HAND-OFF: Report given to Kay Salter RN.
--- NOTE | 2018-04-29 07:40 | NUR ---
NURSE NOTES: Received patient in bed,awake, alert and orientedx3-4. Not in acute respiratory/cardiac distress.Denies pain or discomfort. IV intact, no s/s of infiltration. Bed is in lowest position and locked. Call light within reach. Will continue plan of care.
[2018-04-29 08:00] VITALS: BP 146/87
--- NOTE | 2018-04-29 08:58 | Diagnostic Imaging Report ---
Clinical Indication: Shortness of breath, history of pneumothorax Technique: Spiral acquisitions obtained through the chest. No IV contrast utilized, reason not stated. Multiplanar reconstructions generated. Total dose length product 571.93 mGycm. CTDIvol(s) 16.29 mGy. Dose reduction achieved using automated exposure control Comparison: 04/24/2018 Findings: Again demonstrated is a large right hydropneumothorax. This is probably unchanged in extent, with incomplete expansion of all 3 lobes of the right lung. There is a slightly greater fluid component has slightly decreased air component. The previously demonstrated right upper lobe infiltrate has largely resolved. There is persistent atelectasis of the inferior right upper lobe. There is consolidation and atelectasis in the medial right middle lobe, consolidative component appearing increased from the previous study. There is markedly decreased right lower lobe consolidation as compared to the prior study. A significant portion of the posterior medial right lower lobe is atelectatic, however. No definite pulmonary parenchymal mass demonstrated, but mass could easily be hidden within the areas of atelectatic lung. Again demonstrated is a mass arising from the parietal pleura in the anteromedial right hemithorax. This is complex in shape, measures approximately 2.6 cm transverse by 2.3 cm AP by 2.3 cm craniocaudad. This is either bilobed or there is a separate more inferior mass which measures approximately 12 mm long axis dimension. Numerous other masses are seen coming off of the more peripheral parietal pleura. The amount of right axillary and chest wall emphysema has decreased significantly. A small amount of nondependent gas may be some pleural The left lung and pleural space remain clear. The heart size is normal. There is a small amount of pericardial fluid now present, not evident previously. No mediastinal or hilar mass or adenopathy. Small left lower pole thyroid nodule demonstrated on prior contrast study is less evident on current exam. No axillary or chest wall mass or adenopathy. There is a hiatal hernia again demonstrated, appears larger on the current study. There is a small fat-containing Bochdalek hernia The bones demonstrate degenerative spondylosis changes. The included upper abdominal viscera demonstrate a left upper pole renal cyst. Impression: Large right thoracic hydropneumothorax, consistent with ex vacuo pneumothorax related to previous large volume pleural effusion. Overall unchanged in size, although there is a decreased gas component and increased fluid component. The pleural effusion is reportedly malignant pleural effusion. There is decreased subcutaneous emphysema 2.6 x 2.3 cm mass in the anteromedial pleural space, presumably arising from the parietal pleura. Adjacent 12 mm mass. Additional smaller parietal pleural nodules scattered along the right peripheral hemithorax. 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 There are still areas of atelectasis, as expected given the incomplete reexpansion of the lung after thoracentesis. No definite pulmonary mass demonstrated, but a mass could easily be hidden within the atelectatic lung. Left lung and pleural space are clear Minimal pericardial fluid Hiatal hernia, appears larger than on the previous exam Other findings as noted, including left upper pole renal cyst, degenerative spondylosis changes, small fat-containing Bochdalek hernia This agrees with the preliminary interpretation provided overnight by Dr. Todd The CT scanner at [facility] is accredited by the [employer] and the scans are performed using protocols designed to limit radiation exposure to as low as reasonably achievable to attain images of sufficient resolution adequate for diagnostic evaluation.
--- NOTE | 2018-04-29 10:44 | Diagnostic Imaging Report ---
Indication: Reason For Exam: HX CA Technique: sagittal T1 fast spin echo, axial T1 FLAIR, axial T2 FLAIR, axial T2 FS PROPELLER, axial T2* GRE, axial diffusion weighted images. Postcontrast coronal and axial T1 FLAIR images obtained. ADC and exponential ADC maps generated Comparison: none Findings: No abnormal areas of restricted diffusion to suggest acute infarction. No acute hemorrhage or edema. Tiny focus of susceptibility artifact is seen in the left posterior temporal lobe. No mass effect nor midline shift. Is age-related enlargement of the ventricles and extra axial CSF spaces. Extensive focal and confluent T2 hyperintensities are seen in the bilateral periventricular and deep white matter. No unusual contrast enhancement is demonstrated. The vascular flow voids are preserved. Visualized orbits and sinuses are unremarkable. Impression: Negative for acute intracranial bleed, mass effect, infarct, or contrast enhancing lesion Chronic age-related volume loss. Chronic periventricular deep white matter microvascular ischemic changes This agrees with the preliminary interpretation provided overnight by Dr. Todd
[2018-04-29 12:00] VITALS: BP 132/72
--- NOTE | 2018-04-29 13:44 | Pulmonology Progress Note ---
Assessment/Plan Problems: (1) Pleural effusion, right (2) Acute encephalopathy (3) Hyponatremia (4) copd Assessment/Plan MRI of head and CT of chest again reviewed, CT abdomen and pelvis reviewed cxr shows unchanged pneumothorax tumor markers elevated, awaiting cytology of the fluid, malignant cells. in pleural fluid with Mullerian origin. respiratory treatment Dr. Dumont for oncology saw the pt and will follow up. Subjective ROS Limited/Unobtainable: No Constitutional: Reports: no symptoms HEENT: Repors: no symptoms Allergies: Coded Allergies: LATEX (Verified Allergy, Unknown, 10/07/11) LEVOFLOXACIN (Verified Allergy, 04/12/12) Objective Last 24 Hour Vital Signs Date Time Temp Pulse Resp B/P (MAP) Pulse Ox O2 Delivery O2 Flow Rate FiO2 04/29/18 09:00 Room Air 04/29/18 08:00 98.2 89 18 146/87 (106) 98 04/29/18 04:00 98.8 81 18 131/70 (90) 96 04/28/18 23:34 97.3 78 18 120/68 (85) 95 04/28/18 21:00 Room Air 04/28/18 20:00 98.1 84 18 134/83 (100) 98 04/28/18 16:00 99.0 89 20 127/75 (92) 95 Intake and Output 04/28/18 04/29/18 19:00 07:00 Intake Total 800 ml 100 ml Balance 800 ml 100 ml Intake Oral 800 ml IV Total 100 ml # Voids 4 3 Objective no stress, tumor markers are elevated. 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 Laboratory Tests 04/28/18 18:30: Carcinoembryonic Antigen [Pending] Current Medications Medications (Trade) Dose Ordered Sig/Jadyn Route PRN Reason Start Time Stop Time Status Last Admin Dose Admin Acetaminophen (Tylenol) 650 mg Q4H PRN ORAL fever 04/23/18 11:00 05/23/18 10:59 Dextrose (Dextrose 50%) 25 ml Q30M PRN IV Hypoglycemia 04/23/18 11:15 05/23/18 11:03 Dextrose (Dextrose 50%) 50 ml Q30M PRN IV hypoglycemia 04/23/18 11:15 05/23/18 11:14 Gadobutrol (Gadavist) 7.5 mmol NOW PRN IV Radiology Procedure 04/28/18 18:30 05/02/18 18:30 Lorazepam (Ativan 2mg/ml 1ml) 0.5 mg Q4H PRN IV For Anxiety 04/23/18 11:00 04/30/18 10:59 Morphine Sulfate (Morphine Sulfate) 1 mg Q4H PRN IVP For Pain 04/23/18 11:00 04/30/18 10:59 Ondansetron HCl (Zofran) 4 mg Q6H PRN IVP Nausea & Vomiting 04/23/18 11:00 05/23/18 10:59 Pantoprazole (Protonix) 40 mg DAILY ORAL 04/24/18 09:00 05/24/18 08:59 04/29/18 08:32 Polyethylene Glycol (Miralax) 17 gm HSPRN PRN ORAL Constipation 04/23/18 11:00 05/23/18 10:59 Zolpidem Tartrate (Ambien) 5 mg HSPRN PRN ORAL Insomnia 04/23/18 11:00 04/30/18 10:59 Sully Betancur MD Apr 29, 2018 13:44
--- NOTE | 2018-04-29 14:00 | NUR ---
NURSE NOTES: Patient wanted to be discharge @6:00pm after dinner. Rn set up the ambulance @6:00pm
--- NOTE | 2018-04-29 14:59 | Nephrology Progress Note ---
Assessment/Plan Problem List: (1) Hyponatremia Assessment: resolved (2) Pleural effusion, right (3) Severe malnutrition (4) Pneumothorax Assessment: right Assessment Sever HypoNatremia : U Na below 120 likely depletional now 135 Massive Rt Pleural effusion Acute Encephalopathy Proteinuria / HypoAlbuminemia now has pneumothorax Plan no labs today mag supplement as needed 3% Saline and lasix as needed 2D Echo monitor Lytes check pleural fluid for cytology and culture pneumothorax management Subjective ROS Limited/Unobtainable: No Constitutional: Reports: malaise, weakness Objective Objective Last 24 Hour Vital Signs Date Time Temp Pulse Resp B/P (MAP) Pulse Ox O2 Delivery O2 Flow Rate FiO2 04/29/18 12:00 97.3 94 20 132/72 (92) 98 04/29/18 09:00 Room Air 04/29/18 08:00 98.2 89 18 146/87 (106) 98 04/29/18 04:00 98.8 81 18 131/70 (90) 96 04/28/18 23:34 97.3 78 18 120/68 (85) 95 04/28/18 21:00 Room Air 04/28/18 20:00 98.1 84 18 134/83 (100) 98 04/28/18 16:00 99.0 89 20 127/75 (92) 95 Intake and Output 04/28/18 04/29/18 18:59 06:59 Intake Total 800 ml 100 ml Balance 800 ml 100 ml Intake Oral 800 ml IV Total 100 ml # Voids 4 3 Laboratory Tests 04/28/18 18:30: Carcinoembryonic Antigen [Pending] Height (Feet): 5 Height (Inches): 2.00 Weight (Pounds): 119 General Appearance: no apparent distress Cardiovascular: tachycardia Respiratory/Chest: decreased breath sounds Abdomen: distended Objective no change Carlos Sanchez MD Apr 29, 2018 14:59
[2018-04-29 16:00] VITALS: BP 134/81
--- NOTE | 2018-04-29 19:00 | NUR ---
NURSE NOTES: Patient discharged to [facility] accompanied by two ambulance personnel via gurney in stable condition. Prior to discharge, patient's V/S stable. Skin intact. IV and ID were removed and s/s of infection on IV removal site. RN checked belongings with the patient. All belongings accounted for. Patient has rao of $54.00 Discharge instruction given to the patient. Patient will follow up with her primary doctor as needed. [facility] aware of her discharge.
--- NOTE | 2018-04-30 12:34 | Discharge Summary ---
Discharge Summary Discharge Summary _ DATE OF ADMISSION: 04/23/2018 DATE OF DISCHARGE: 04/29/2018 DISCHARGED BY: Dr. Sully Betancur CONSULTANTS: Dr. Carlos Borges BRIEF HOSPITAL COURSE: Patient is a 77-year-old female, who was sent to ED by her primary care physician for evaluation of hyponatremia. Patient had a history of COPD. She was noted to have increased generalized weakness. On evaluation at the ED, vital signs were stable. Blood work not show any leukocytosis, hemoglobin and hematocrit were stable. Sodium was 116, chloride 82. Chest x-ray showed large right pleural effusion. Urinalysis showed 2+ protein, 2+ ketones, 3+ blood, 1+ leukocyte esterase, 2-4 RBC and 0-2 WBC. She was then admitted for evaluation of severe hyponatremia, acute encephalopathy and large right pleural effusion. Inspector [employer] was consulted. She was started on 3% saline. Urinary sodium was less than 20. Hyponatremia likely depletional. On 04/24/2018, she underwent right sided thoracenteses yielding 3000 mL of fluid. Postprocedure, there was interim development of large right ex vacuo pneumothorax. Serial chest imaging was done to assess lung findings. TSH was mildly elevated at 4.4. T4 was normal. Free T3 was slightly low at 1.5. [employer] was consulted. Slight elevation of the TSH is not a contributor to hyponatremia. There was a slight abnormality most likely due to sick euthyroid phenomenon. There was no indication to be started on thyroid supplements. Serum cortisol was normal. Echocardiogram showed EF 60%. Tumor markers were elevated. Oncologist was consulted. Thoracentesis cytology showed evidence of malignant pleural effusion. Chest CT showed a large right thoracic hydropneumothorax, consistent with ex tobacco pneumothorax related to previous large volume pleural effusion. There was 2.6 x 2.3 cm mass in the anteromedial pleural space , arising from parietal pleura. Adjacent 12 mm mass. Additional smaller parietal pleural nodules scattered along the right peripheral hemithorax. Brain MRI was negative. She was recommended PET scan as outpatient. Chest x-ray with unchanged pneumothorax. She was eventually cleared for discharge to follow-up with Dr. Dumont as an outpatient. FINAL DIAGNOSES: Right pleural effusion, status post thoracentesis Acute toxic metabolic encephalopathy Malignant pleural effusion Severe hyponatremia COPD Severe malnutrition Proteinuria/hypoalbuminemia Sick euthyroid DISPOSITION: Patient was discharged home. DISCHARGE INSTRUCTIONS: Follow-up in a week. I have been assigned to complete a discharge summary on this account, I was not involved with the patient's management. Nereyda Wolf NP Apr 30, 2018 12:34
--- NOTE | 2018-04-30 14:13 | Diagnostic Imaging Report ---
APPROVED REPORT CPT Code: 60052 Present Symptoms Comments: BILATERAL LEGS PAIN. BILATERAL: Imaging reveals a patent deep venous system bilaterally. There is no evidence of thrombus within the femoral, popliteal or tibial segments. The greater saphenous veins are also within normal limits. Doppler indicates normal spontaneous flow within these segments.
== END 2018-04-29 19:12 | disposition home or self-care (01) | DRG 186 ==
LOC: EMR 11:50 → 2E 12:06 → EDBEDREQ 12:20 → 4E 04-27 22:22
PROC: 0W993ZX Drainage of Right Pleural Cavity, Percutaneous Approach, Diagnostic (ICD-10-PCS; principal; 2018-04-23)
DX: J94.8 Other specified pleural conditions (principal); E43 Unspecified severe protein-calorie malnutrition; G92 Toxic encephalopathy; E87.1 Hypo-osmolality and hyponatremia; J95.811 Postprocedural pneumothorax; J91.0 Malignant pleural effusion; Z68.1 Body mass index [BMI] 19.9 or less, adult; J44.9 Chronic obstructive pulmonary disease, unspecified; Z88.1 Allergy status to other antibiotic agents; Z91.040 Latex allergy status; Y84.8 Other medical procedures as the cause of abnormal reaction of the patient, or of later complication, without mention of misadventure at the time of the procedure; E07.81 Sick-euthyroid syndrome; R51 Headache
CPT/HCPCS: 36415; 70552; 71045; 71250; 71260; 74177; 74178; 76942; 80053; 80061; 81001; 82378; 82533; 82607; 82746; 82977; 83735; 83880; 83930; 83935; 84100; 84300; 84439; 84443; 84481; 84550; 85007; 85025; 85610; 85730; 86140; 86300; 86301; 86304; 86580; 87070; 87081; 87205; 88104; 89051; 93005; 93306; 93970; 99285; A9585

== ENCOUNTER 2018-06-04 13:46 | Outpatient (CLI) | payer MEDICARE, MEDICAID ==
[~2018-06-04 13:46] MED LIST changes: +BACTRIM DS TAB1 EAC1 ORAL
--- NOTE | 2018-06-04 14:37 | Diagnostic Imaging Report ---
Indication: Cough Technique: One view of the chest Comparison: 04/27/2018 Findings: Previously demonstrated right pleural effusion has increased in size, but previously demonstrated right pneumothorax has resolved, with right lung volume overall similar to the previous study. Previously demonstrated right chest wall subcutaneous emphysema is no longer evident. There is a retrocardiac hiatal hernia which is not evident on the previous radiograph although is demonstrated on a CT scan of 04/28/2018. The left lung and pleural space remain clear. The heart size is upper limits of normal. There is thoracic kyphotic deformity without definite depression fracture there are degenerative changes of the thoracic spine. Impression: Large right pleural effusion, which has essentially replaced the previously demonstrated right pneumothorax with overall unchanged volume of aerated right lung. Clear left lung. Hiatal hernia Findings discussed by phone with Dr. Dumont at the time of interpretation
== END 2018-06-04 15:46 | disposition home or self-care (01) ==
LOC: RAD 13:46
DX: J91.0 Malignant pleural effusion (principal); R05 Cough; K44.9 Diaphragmatic hernia without obstruction or gangrene
CPT/HCPCS: 71046

== ENCOUNTER 2018-08-14 11:10 | Emergency (ER) | payer MEDICARE, MEDICAID ==
[~2018-08-14] VITALS: Ht 157.5 cm; Wt 53.5 kg
[2018-08-14 11:26] VITALS: BP 127/82
--- NOTE | 2018-08-14 11:26 | NUR ---
ED Nurse Note: Patient present at ER by Zack from [facility] due to SOB. patient aao x4 and ambulatory with assist. skin clean and intact but dry. pt is in gown and on bus monitor. non pitting edema on BLE and hernia on genital area noted. per pt she has had hernia since 1984. pt denied pain. SOB and labored breathing upon short distance ambulation noted.
[2018-08-14] MEDS ORDERED: Albuterol ud Inhalation HHN ONE (11:30)
[2018-08-14] MEDS ORDERED: Ipratropium 0.02% Inh Soln 2.5ml UD HHN ONE (11:30)
--- NOTE | 2018-08-14 11:34 | Emergency Room Report ---
History of Present Illness General Chief Complaint: Dyspnea/Respdistress Source: Patient, Medical Record Present Illness HPI This patient has a history of lung cancer. She gets recurrent malignant pleural effusion. She has had multiple therapeutic thoracentesis. She presents today for worsening shortness of breath over the past 2 days consistent with her pleural effusion worsening. She denies recent illness. She denies fever chills. She has no other complaints. Allergies: Coded Allergies: LATEX (Verified Allergy, Unknown, 10/07/11) LEVOFLOXACIN (Verified Allergy, 04/12/12) Patient History Past Medical History: see triage record, asthma, COPD, other - Hx of metastatic lung ca Social History: Denies: smoking, alcohol use, drug use Reviewed Nursing Documentation: PMH: Agreed; PSxH: Agreed Nursing Documentation-PMH Past Medical History: No History, Except For Hx Cardiac Problems: Yes Hx Hypertension: No Hx Pacemaker: No Hx Asthma: Yes Hx COPD: Yes Hx Diabetes: No Hx Cancer: No Hx Gastrointestinal Problems: No Hx Dialysis: No Hx Neurological Problems: No Hx Cerebrovascular Accident: No Hx Seizures: No Review of Systems All Other Systems: negative except mentioned in HPI Physical Exam Vital Signs Date Time Temp Pulse Resp B/P (MAP) Pulse Ox O2 Delivery O2 Flow Rate FiO2 08/14/18 11:16 96.8 94 16 140/86 (104) 96 Room Air Sp02 EP Interpretation: reviewed, normal General Appearance: no apparent distress, alert, GCS 15, non-toxic Head: normocephalic, atraumatic Eyes: bilateral eye normal inspection, bilateral eye PERRL ENT: hearing grossly normal, normal pharynx, no angioedema, normal voice Neck: full range of motion, supple/symm/no masses Respiratory: chest non-tender, lungs clear, normal breath sounds, accessory muscle use, other - Dyspnea and tachypnea Cardiovascular #1: regular rate, rhythm, no edema Gastrointestinal: normal bowel sounds, non tender, soft, non-distended, no guarding, no rebound Rectal: deferred Musculoskeletal: back normal, gait/station normal, normal range of motion, non- tender Neurologic: alert, oriented x3, responsive, motor strength/tone normal, sensory intact, speech normal Psychiatric: judgement/insight normal, memory normal, mood/affect normal, no suicidal/homicidal ideation Skin: normal color, no rash, warm/dry, well hydrated Medical Decision Making Diagnostic Impression: Primary Impression: Malignant pleural effusion ER Course This patient has recurrent malignant pleural effusion. She underwent ultrasound -guided thoracentesis by radiology. She requests discharge. She tolerated the procedure without complication or incident. Chest X-Ray Diagnostic Results Chest X-Ray Diagnostic Results : Chest X-Ray Ordered: Yes # of Views/Limited/Complete: 1 View Indication: Shortness of Breath EP Interpretation: Yes Interpretation: other - Complete opacification of the R. lung. Impression: Other - See above Electronically Signed by: Uyen Segura DO Last Vital Signs Date Time Temp Pulse Resp B/P (MAP) Pulse Ox O2 Delivery O2 Flow Rate FiO2 08/14/18 11:16 96.8 94 16 140/86 (104) 96 Room Air Status: improved Disposition: HOME, SELF-CARE Condition: Improved Uyen Segura DO Aug 14, 2018 11:34
[2018-08-14 12:05] LABS: HEMATOCRIT 31.3 % (37.0-47.0); HEMOGLOBIN 10.7 G/DL (12.0-16.0); MEAN CORPUSCULAR VOLUME 74 FL (80-99); PLATELET COUNT 610 K/UL (150-450); RED CELL DISTRIBUTION WIDTH 13.2 % (11.6-14.8); WHITE BLOOD COUNT 13.4 K/UL (4.8-10.8)
--- NOTE | 2018-08-14 12:23 | NUR ---
ED Nurse Note: assisted pt with bedpan and pt could not provide urine sample. pt refused straight catheter.
[2018-08-14 12:40] LABS: ALANINE AMINOTRANSFERASE 27 U/L (12-78); ALBUMIN 3.3 G/DL (3.4-5.0); ALBUMIN/GLOBULIN RATIO 0.9 (1.0-2.7); ALKALINE PHOSPHATASE 110 U/L (46-116); ANION GAP 6 mmol/L (5-15); ASPARTATE AMINO TRANSFERASE 38 U/L (15-37); BILIRUBIN,TOTAL 0.5 MG/DL (0.2-1.0); BLOOD UREA NITROGEN 11 mg/dL (7-18); CALCIUM 9.3 MG/DL (8.5-10.1); CARBON DIOXIDE 30 MMOL/L (21-32); CHLORIDE 83 MMOL/L (98-107); CKMB 14.2 NG/ML (0.0-3.6); CREATINE KINASE 374 U/L (26-308); CREATININE 0.6 MG/DL (0.55-1.30)
[2018-08-14 12:50] LABS: POTASSIUM 3.8 MMOL/L (3.5-5.1); SODIUM 125 MMOL/L (136-145)
[2018-08-14 12:54] LABS: APPEARANCE,URINE CLEAR; BILIRUBIN, URINE NEGATIVE (NEGATIVE); GLUCOSE, URINE (UA) NEGATIVE (NEGATIVE); KETONES,URINE 4+ (NEGATIVE); LEUKOCYTE ESTERASE ,URINE NEGATIVE (NEGATIVE); NITRITE,URINE NEGATIVE (NEGATIVE); PH,URINE 6 (4.5-8.0); PROTEIN,URINE 3+ (NEGATIVE); UROBILINOGEN,URINE 1 MG/DL (0.0-1.0)
[2018-08-14 12:57] LABS: COLOR,URINE YELLOW
--- NOTE | 2018-08-14 13:20 | NUR ---
ED Nurse Note: pt went down to paracentesis in stable condition by surgical assistance.
--- NOTE | 2018-08-14 13:22 | NUR ---
ED Nurse Note: PT TO US FOR THORACENTESIS.
[2018-08-14 13:26] VITALS: BP 126/74
--- NOTE | 2018-08-14 13:36 | Pre-Procedure Note/Attestation ---
Pre-Procedure Note/Attestation Complete Prior to Procedure Planned Procedure: right Procedure Narrative: thoracentesis Indications for Procedure Pre-Operative Diagnosis: R pleural effusion Attestation I attest that I discussed the nature of the procedure; its benefits; risks and complications; and alternatives (and the risks and benefits of such alternatives ), prior to the procedure, with the patient (or the patient's legal leather goods sales representative). I attest that, if there was a reasonable possibility of needing a blood transfusion, the patient (or the patient's legal leather goods sales representative) was given the [facility] standardized written summary, pursuant to the [place] Blood Safety Act ([place] Health and Safety Code # 1645, as amended). I attest that I re-evaluated the patient just prior to the surgery and that there has been no change in the patient's H&P, except as documented below: Gorge Guerra MD Aug 14, 2018 13:36
--- NOTE | 2018-08-14 13:39 | Diagnostic Imaging Report ---
Indication: Shortness of breath Technique: One view of the chest Comparison: none Findings: There is complete opacification of the right hemithorax. The left lung pleural space are clear. Difficult to assess, right heart border obscured.. The aorta is calcified. The upper mediastinum Impression: Complete opacification right hemithorax. This likely represents a large recurrent pleural effusion, but also could be due to complete opacification of the right lung.
--- NOTE | 2018-08-14 14:24 | NUR ---
ED Nurse Note: pt came back from paracentesis in stable condition.
--- NOTE | 2018-08-14 14:39 | Brief Operative Note ---
Immediate Post Operative Note Operative Note Pre-op Diagnosis: R pleural effusion Procedure: thoracentesis Post-op Diagnosis: same as pre-op Surgeon: Arnulfo GUERRA Anesthesia: local Specimen: yes - sample of grossly bloody fluid sent to lab Complications: none Fluids: none Implant(s) used?: No Gorge Guerra MD Aug 14, 2018 14:39
[2018-08-14 16:10] VITALS: BP 116/76
--- NOTE | 2018-08-14 16:10 | NUR ---
ER DISCHARGE NOTE: Patient is cleared to be discharged per ERMD after thoracentesis, pt is aox4, on room air, with stable vital signs. pt was given dc instructions, pt was able to verbalize understanding, pt id band and iv site removed without complications. pt is able to ambulate with assist but assisted with WC to prevent fall. pt took all belongings. Taxi was provided.
--- NOTE | 2018-08-14 16:12 | Diagnostic Imaging Report ---
Indications: Pleural effusion Technique: Informed consent obtained prior consent of the procedure. Procedure, risks, benefits discussed with patient, all questions answered. She indicated her willingness to proceed. Procedural timeout performed. Ultrasound used to localize optimal puncture site. Sterile prepping and draping right chest. Local anesthesia with 1% lidocaine. Under real-time ultrasound guidance, puncture pleural space using thoracentesis needle. Stylet removed. Catheter placed to vacuum bottle suction. Total 2000 milliliters of grossly bloody fluid aspirated. Patient tolerated procedure well, without immediate complication. Findings: Followup sonography demonstrates near complete resolution of pleural fluid. Impression: Successful ultrasound-guided thoracentesis, yielding 2000 milliliters of grossly bloody fluid
--- NOTE | 2018-08-14 16:18 | NUR ---
ED Nurse Note: COURTESY CALL TO "DI" WAS GIVEN. PT. FROM [facility]
--- NOTE | 2018-08-14 16:29 | Diagnostic Imaging Report ---
Indication: Status post thoracentesis, shortness of breath Technique: One view of the chest Comparison: 2 hours earlier Findings: Despite recent large volume (2 L) thoracentesis, the right hemithorax remains essentially completely opacified, with only a small focus of aerated lung in the right suprahilar region and another in this infrahilar region. Overall, the thoracentesis as this resulted in shift of the mediastinal structures to the right. No pneumothorax is evident. The left lung and pleural space remain clear. Impression: No evidence of pneumothorax Only minimal reaeration of the right lung, despite recent large volume thoracentesis. Most of the right lung remains atelectatic Findings previously discussed by phone with Dr. Adam
--- NOTE | 2018-08-15 19:38 | Cardiology Report ---
APPROVED REPORT EKG Measurement Heart [id number] Normal sinus rhythm Possible Anterior infarct, age undetermined Abnormal ECG
== END 2018-08-14 16:10 | disposition home or self-care (01) ==
LOC: EMR 11:40
DX: C34.90 Malignant neoplasm of unspecified part of unspecified bronchus or lung (principal); J91.0 Malignant pleural effusion; Z91.040 Latex allergy status; Z88.8 Allergy status to other drugs, medicaments and biological substances; J44.9 Chronic obstructive pulmonary disease, unspecified
CPT/HCPCS: 36415; 71045; 76942; 80053; 81003; 82550; 82553; 83880; 84484; 85007; 85025; 85610; 85730; 87070; 87205; 88104; 89051; 93005; 99284